=== PATIENT | male | born 1940 | race Caucasian/White ===

== ENCOUNTER → 2016-09-24 | Outpatient (CLI) | payer MEDICARE ==
[~2016-09-24] MED LIST: ACULAR 3ML 3 ML5 ML; ASPI-COR81 M1 PO; ASPIR-TRIN325 MG PO; B12,B-12,B 12500 MC1 PO; BACTRIM DS 8001 TA1 PO; CARDIZEM120 MG PO; CELEXA40 MG PO; CIPRO500 MG PO; COUMADIN5 M1 PO; FLOMAX0.4 MG PO; GLIPIZIDE10 MG PO; HYDR25T PO; LANTUS100 U/ML SC; LOPRESSOR25 MG PO; METFORMIN1000 MG PO; METOPROLOL SUCC25 M2 PO; METOPROLOL SUCC50 M2 PO; METOPROLOL SUCC50 MG PO; OCUFLOX 0.3% 5 M5 ML; PRED FORTE 1 ML1 ML; SIMVASTATIN40 MG PO; VICODIN ES 7501 TAB PO; XARE20MG PO; ZOVIRAX800 MG PO
[2016-09-24 13:45] LABS: C-REACTIVE PROTEIN 1.81 MG/DL (0-0.3); POTASSIUM 5.2 mmol/L (3.5-5.1)
[2016-09-24 13:47] LABS: HEMOGLOBIN A1c 8.1 % (4.8-5.6)
== END | disposition home or self-care (01) ==
LOC: MRI 01:34 → LAB 01:34 → MRI 13:00
PROVIDERS: Internal Medicine
DX: E11.621 Type 2 diabetes mellitus with foot ulcer (principal); L97.519 Non-pressure chronic ulcer of other part of right foot with unspecified severity

== ENCOUNTER → 2016-10-11 | Outpatient (CLI) | payer MEDICARE, BC ==
--- NOTE | ~2016-10-11 | PR ---
[place], [place] PROGRESS NOTE NAME: JAMIA JAMIL LOCATED WITHIN [facility] #: [id number] UNIT #: [id number] ROOM: DOCTOR: CED VelaNOVA BIRTHDATE: [birth year] DOS: 10/11/2016 CHIEF COMPLAINT: Follow up right great toe ulcer. HISTORY OF PRESENT ILLNESS: The location of the wound is the right great toe, medial plantar aspect. The chronicity is over a year and half nonhealing. He has been here since April without any significant improvement. He has diabetes, which is improving, but initially had been uncontrolled, difficulty offloading; however, now has been wearing a postop shoe, which seems to be keeping the callus at bay. He does not want to use a contact cast at this time. 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 X-ray is negative. Sed rate elevated. He has been seen by Infectious Disease and was given one time injection of Dalvance, he is due for the second dose today. He has a followup appointment with Infectious Disease next week. He has no fevers or chills. No advancing erythema. He says his sugars are the same as always not uncontrolled. He has no pain, it does continue to drain, but seems to somewhat decrease after he elevates his leg. OBJECTIVE: Vitals are stable. Temperature is 98.1, pulse of 76, respirations 18, blood pressure is 126/80. The wound is measuring 1.7 x 1.5 x 0.1, it is definitely bigger. There is continued erythema and edema of the toe. It does not appear to be advancing as far as affecting the foot at this point, but it still is quite apparent. There is some fibrin and slough present in the base of the wound. There is no purulence or tenderness or odor present. Debridement was done today, the tissue removed was fibrin, slough and subcutaneous tissue. There was a moderate amount of bleeding that was controlled with pressure. Callus was also removed with a #15 blade. Post-debridement measurements are as follows: 2.1 x 2.6 x 0.1. The patient tolerated the debridement well. Instrument utilized was a #15 blade and a curet. ASSESSMENT AND PLAN: Worsening diabetic foot ulcer with probable chronic osteomyelitis and evidence of cellulitis. He is on Dalvance. Hopefully, we will see an improvement after he gets a second dose. He has a followup appointment with Infectious Disease. We are awaiting approval for hyperbaric oxygen. However, despite even if we do not get approval from insurance, he may not agree to it. I did also recommend to get a TCOM as this may show whether he would be actually benefitting from HBO or not. He is agreeable to getting this test done. We will try to get this ordered next week as soon as possible. In the meantime, I did tell him that he is at risk for amputation of the toe and also I did advise him to watch for advancing erythema or any type of systemic symptoms. A marker was used today to jaime the area of erythema so he has an idea of whether it is worsening or not. We have not used Dakin's on him and I think I would like to try this as well to see if this will help with any of the localized process of infection and this has been ordered and called into his pharmacy and we will use this. In the meantime, I will have him use the Aquacel Ag instead of Maxorb. Followup is in 1 week. I want the patient to change his dressing everyday. [place], [place] PROGRESS NOTE NAME: [facility]IA JAMIL [facility] [id number] UNIT #: [id number] ROOM: DOCTOR: NOVA COUGHLIN M.D. BIRTHDATE: [birth year] NOVA COUGHLIN MD CM:PNTRANS [id number] NOVA COUGHLIN M.D. 10/24/16 0628 interface
== END ==
LOC: WOUNDCARE 02:20
DX: E11.621 Type 2 diabetes mellitus with foot ulcer (principal); L97.511 Non-pressure chronic ulcer of other part of right foot limited to breakdown of skin; E11.69 Type 2 diabetes mellitus with other specified complication; M86.3 Chronic multifocal osteomyelitis; L84 Corns and callosities

== ENCOUNTER → 2016-11-26 | Outpatient (CLI) | payer MEDICARE, BC ==
--- NOTE | ~2016-11-26 | PR ---
[place], [place] PROGRESS NOTE NAME: JAMIA JAMIL UNIT #: [id number] ROOM: DOCTOR: FOZIA RICE DO BIRTHDATE: [birth year] DOS: 11/26/2016 The patient is supervised in the hyperbaric chamber for 11th hyperbaric treatment out of 30 for diabetic ulcers of the lower extremity. Pre-therapy, blood pressure 140/60, pulse 60, respirations 16, temperature 97.9, blood sugar 196. Post-therapy, blood pressure 130/60, pulse 60, respirations 16, temperature 97.8, blood sugar 134. Pre-therapy, tympanic membranes were negative. Grade 0 TEED score. The patient was supervised in the chamber 120 minutes total with a depth of ____ pressure for 90 minutes with no air breaks. He tolerated the procedure without difficulty and will return for next treatment. FOZIA RICE DO CM:PNTRANS [id number] FOZIA RICE DO 11/27/16 0219 interface
== END ==
LOC: WOUNDCARE 03:15
DX: E11.621 Type 2 diabetes mellitus with foot ulcer (principal); L97.511 Non-pressure chronic ulcer of other part of right foot limited to breakdown of skin; E11.69 Type 2 diabetes mellitus with other specified complication; M86.371 Chronic multifocal osteomyelitis, right ankle and foot

== ENCOUNTER → 2016-11-27 | Outpatient (CLI) | payer MEDICARE, BC ==
--- NOTE | ~2016-11-27 | PR ---
[place], [place] PROGRESS NOTE NAME: JAMIA JAMIL [facility] #: [id number] UNIT #: [id number] ROOM: DOCTOR: CED Vela,NOVA BIRTHDATE: [birth year] DOS: 11/27/2016 HBO THERAPY NOTE This is treatment #12. The protocol is 2.0 FERN with 90 minutes of oxygen and no air breaks. The indication is the diabetic foot ulcer, Ryder stage 3. Compression began at 1148. Treatment pressure was reached at 1203. Treatment length was 120 minutes. Decompression began at 1333 and ended at 1348. Vitals pre-HBO shows a blood pressure of 164/74, pulse of 68, respirations 16, temperature 98.1, glucose is 190. Post-HBO, the blood pressure is 158/66, pulse of 60, respirations 16, temperature 98, glucose 112. TEED scale is grade 0 bilaterally pre and post-HBO treatment. The patient tolerated the treatment well without any adverse events. I certify that I supervised this HBO treatment in accordance with Medicare guidelines. A trained emergency response team is readily available per hospital policies and procedures. Continue HBO therapy as ordered. NOVA COUGHLIN MD CM:PNTRANS NOVA COUGHLIN M.D. 11/28/16 0924 interface
--- NOTE | ~2016-11-27 | PR ---
[place], [place] PROGRESS NOTE NAME: JAMIA JAMIL [facility] #: [id number] UNIT #: [id number] ROOM: DOCTOR: CED VelaNOVA BIRTHDATE: [birth year] DOS: 11/27/2016 CHIEF COMPLAINT: The patient comes in for a followup of his diabetic foot ulcer. HISTORY OF PRESENT ILLNESS: The location is the right great toe, medial plantar aspect. There is associated osteomyelitis. He is in HBO therapy, which seems to have really helped as far as the redness and swelling of the toe goes; however, the wound has made little progress in healing. He continues to have a fair amount of drainage. No fevers or chills and he has not been followed up by ID yet for a followup visit, so this was requested last week. PHYSICAL EXAMINATION: VITAL SIGNS: Stable. Blood pressure is 164/74, pulse is 68, respirations 16, temp 98.1. WOUND EXAMINATION: The wound is measuring the same 2 x 2 x 0.1. There is some fibrin slough, minimal callus present, but is still present. There is erythema and edema, but overall it does seem improved in general. There is some fibrin slough present in the base of the wound as well. Debridement was done. Tissue removed was callus, fibrin and slough with a moderate amount of bleeding that was controlled with pressure. The patient tolerated the procedure well. A #15 blade was utilized. Post-debridement measurements are unchanged. ASSESSMENT AND PLAN: Chronic diabetic foot ulcer with no significant improvement as far as wound margins. However, the hyperbaric seems to be improving the erythema and edema of the toe in general, so this aspect does seem to have improved. He is awaiting further recommendations from Infectious Disease. He does have an offloading shoe; however, I think he would benefit from another repeat orthotic consult with the ultrasound spec for possible other sort of offloading device if possible. He is not a contact cast candidate as he drives and he will be unable to drive with a contact cast. A repeat swab culture was taken today post-debridement. All his previous cultures have essentially been unremarkable. We will continue with the collagen dressing and have him follow up with Infectious Disease and ultrasound spec as well. Repeat arterial Dopplers will be ordered as it has been a long time since he has had them done and repeat ARI today was noncompressible on the right lower extremity. So, we will repeat the arterial Dopplers and follow up in 1 week. Hopefully, he will be a candidate for a potential biologic graft. So, we will see how he does next week and then try to get him on Dr. Gotti schedule the following week after. [place], [place] PROGRESS NOTE NAME: JAMIA JAMIL UNIT #: [id number] ROOM: DOCTOR: NOVA COUGHLIN M.D. BIRTHDATE: [birth year] NOVA COUGHLIN MD CM:FAYE [phone] NOVA COUGHLIN M.D. 11/27/161948 interface
== END ==
LOC: WOUNDCARE 03:10
DX: E11.621 Type 2 diabetes mellitus with foot ulcer (principal); L97.511 Non-pressure chronic ulcer of other part of right foot limited to breakdown of skin; E11.69 Type 2 diabetes mellitus with other specified complication; M86.8X7 Other osteomyelitis, ankle and foot; L84 Corns and callosities

== ENCOUNTER → 2016-11-28 | Outpatient (CLI) | payer MEDICARE, BC ==
--- NOTE | ~2016-11-28 | PR ---
[place], [place] PROGRESS NOTE NAME: JAMIA JAMIL [facility] #: [id number] UNIT #: [id number] ROOM: DOCTOR: CED Vela,NOVA BIRTHDATE: [birth year] DOS: 11/28/2016 This is treatment #13, protocol is 2.0 FERN with 90 minutes of oxygen and no air breaks. Compression began at 11:17. Treatment pressure was reached at 11:33. Decompression began at 13:03 and ended at 13:19. Treatment length of 122 minutes. Vitals pre-HBO shows a blood pressure of 138/60, pulse of 60, respirations 15, temperature 97.8, glucose is 227. Post-HBO, the blood pressure is 152/70, pulse of 60, respirations 16, temperature 97.9, glucose is 150. TEED scale is grade 0 bilaterally pre and post-HBO treatment. The patient tolerated the treatment well without adverse events. I certify that I supervised this HBO treatment in accordance with Medicare guidelines. A current trained emergency response team is readily available per hospital policies and procedures. Continue HBO therapy as ordered. NOVA COUGHLIN MD CM:PNTRANS [id number] NOVA COUGHLIN M.D. 11/29/16 0221 interface
== END ==
LOC: WOUNDCARE 02:24
DX: E11.621 Type 2 diabetes mellitus with foot ulcer (principal); L97.511 Non-pressure chronic ulcer of other part of right foot limited to breakdown of skin; E11.69 Type 2 diabetes mellitus with other specified complication; M86.371 Chronic multifocal osteomyelitis, right ankle and foot

== ENCOUNTER → 2016-12-09 | Outpatient (CLI) | payer MEDICARE, BC ==
--- NOTE | ~2016-12-09 | PR ---
[place], [place] PROGRESS NOTE NAME: JAMIA JAMIL [facility] #: [id number] UNIT #: [id number] ROOM: DOCTOR: CED Vela,NOVA BIRTHDATE: [birth year] DOS: 12/09/2016 HBO THERAPY NOTE This is treatment #14. The protocol is 2.0 FERN with 90 minutes of oxygen and no air breaks. INDICATION: Diabetic ulcer of the lower extremity. Compression began at 8:14. Treatment pressure was reached at 8:30. Treatment length was 122 minutes. Decompression began at 10 and ended at 10:16. Blood pressure prior to HBO was 130/64, pulse of 60, respirations 20, temperature is 98. Glucose is 240. Post-HBO the blood pressure is 150/66, pulse of 60, respirations 16, temperature 97.9. Glucose is 203. TEED scale is grade 0 bilaterally pre and post-HBO treatment. The patient tolerated the treatment well without adverse events. I certify that I supervised this HBO treatment in accordance with Medicare guidelines. A trained emergency response team is readily available per hospital policies and procedures. Continue HBO therapy as ordered. NOVA COUGHLIN MD CM:PNTRANS [phone] NOVA COUGHLIN M.D. 12/10/16 0801 interface
== END ==
LOC: WOUNDCARE 10:06
DX: E11.621 Type 2 diabetes mellitus with foot ulcer (principal); L97.511 Non-pressure chronic ulcer of other part of right foot limited to breakdown of skin; E11.69 Type 2 diabetes mellitus with other specified complication; M86.371 Chronic multifocal osteomyelitis, right ankle and foot

== ENCOUNTER → 2016-12-10 | Outpatient (CLI) | payer MEDICARE, BC ==
--- NOTE | ~2016-12-10 | PR ---
[place], [place] PROGRESS NOTE [id number] #: [id number] ROOM: DOCTOR: FOZIA RICE DO BIRTHDATE: [birth year] DOS: 12/10/2016 HYPERBARIC NOTE SUBJECTIVE: The patient was supervised in hyperbaric chamber for 15th hyperbaric treatment for diabetic ulcers of lower extremity. Pre-therapy, blood pressure 140/56, pulse 60, respirations 16, temperature 98, and glucose 202. Post-therapy, blood pressure 160/72, pulse 60, respirations 16, temperature 97.9, and blood sugar 134. The patient was supervised in the chamber for 122 minutes total with 90 minutes at depth at 2 atmospheres of pressure, no air breaks. He tolerated the procedure without difficulty and will return for next treatment. His tympanic membranes were clear with grade 0 TEED score bilaterally. FOZIA RICE DO CM:PNTRANS [phone] FOZIA RICE DO 12/11/16 0612 interface
== END ==
LOC: WOUNDCARE 12:36
DX: E11.621 Type 2 diabetes mellitus with foot ulcer (principal); L97.511 Non-pressure chronic ulcer of other part of right foot limited to breakdown of skin; E11.69 Type 2 diabetes mellitus with other specified complication; M86.371 Chronic multifocal osteomyelitis, right ankle and foot

== ENCOUNTER → 2016-12-11 | Outpatient (CLI) | payer MEDICARE, BC ==
--- NOTE | ~2016-12-11 | PR ---
[place], [place] PROGRESS NOTE NAME: JAMIA JAMIL [facility] #: [id number] UNIT #: [id number] ROOM: DOCTOR: CED Vela,NOVA BIRTHDATE: [birth year] DOS: 12/11/2016 HBO THERAPY NOTE This is treatment #16. Protocol is 2.0 FERN with 90 minutes of oxygen and no air breaks. INDICATION: Diabetic foot ulcer. The compression began at 8:05 and treatment pressure was reached at 8:28. Treatment length was 120 minutes. Decompression began at 9:15, ended at 10:05. Blood pressure prior to HBO was 128/60, pulse of 62, respirations 16, temp is 98, glucose is 229. Post-HBO, the blood pressure is 156/66, a pulse of 64, respirations 16, temperature is 97.9, glucose is 186. TEED scale is grade 0 bilaterally pre and post-HBO treatment. I certify that I supervised this HBO treatment in accordance with Medicare guidelines. A trained emergency response team is readily available per hospital policies and procedures. Continue HBO therapy as ordered. NOVA COUGHLIN MD CM:PNTRANS [phone] NOVA COUGHLIN M.D. 12/12/16 0639 interface
--- NOTE | ~2016-12-11 | PR ---
[place], [place] PROGRESS NOTE NAME: JAMIA JAMIL [facility] #: [id number] UNIT #: [id number] ROOM: DOCTOR: CED VelaNOVA BIRTHDATE: [birth year] DOS: 12/11/2016 CHIEF COMPLAINT: Followup of diabetic foot ulcer. HISTORY OF PRESENT ILLNESS: The location of the wound is the right great toe medial plantar aspect, there is associated osteomyelitis. He has had approximately 15 treatments of HBO therapy, which has helped as far as the redness and swelling of the toe. However, the wound has made little progress in granulation, it has not gotten much smaller. In the meantime, he has no fevers or chills. He continues to have a fair amount of drainage. He is on a collagen dressing. He has a followup appointment with Dr. Casarez this week on for any further recommendations per ID. He has been busy and has had missed a few treatments in his wound clinic appointment last week due to his being ill and now he has had more responsibility trended care for her as well at home. He wishes to not do HBO therapy anymore either. PHYSICAL EXAMINATION: VITAL SIGNS: As follows: He is afebrile, pulse is 60, respirations 16, blood pressure is 130/60. EXTREMITIES: The wound is measuring 1.5 x 1.9 x 0.1. There is minimal fibrin and slough present in the base of the wound. There is some callus still present, mostly at the bottom end of it. Overall, the redness seems stable and not worse, slightly improved overall from a few weeks ago; however, is still somewhat present. It is not tender. It is not acutely warm. A selective debridement was done to remove fibrin, slough, and callus formation. This was accomplished with a #15 blade. Post-debridement measurements are 1.5 x 1.9 x 0.1. There was a moderate amount of bleeding that was controlled with pressure. The patient tolerated the debridement well. ASSESSMENT AND PLAN: Chronic nonhealing diabetic foot ulcer with little progress. He wishes to stop HBO therapy. He is going to follow up with manny this week as well and I did suggest for him to see Dr. Gotti next week to see if he would be a candidate for possible skin substitute, so he would like to discuss with her what this entails. Follow up in [address] Gotti. [place], [place] PROGRESS NOTE NAME: JAMIA JAMIL UNIT #: [id number] ROOM: DOCTOR: NOVA COUGHLIN M.D. BIRTHDATE: [birth year] NOVA COUGHLIN MD CM:FAYE [phone] NOVA COUGHLIN M.D. 12/12/16108 interface
== END ==
LOC: WOUNDCARE 01:29
DX: E11.621 Type 2 diabetes mellitus with foot ulcer (principal); L97.511 Non-pressure chronic ulcer of other part of right foot limited to breakdown of skin; E11.69 Type 2 diabetes mellitus with other specified complication; M86.371 Chronic multifocal osteomyelitis, right ankle and foot; I48.91 Unspecified atrial fibrillation

== ENCOUNTER → 2016-12-17 | Outpatient (CLI) | payer MEDICARE, BC ==
--- NOTE | ~2016-12-17 | PR ---
[place], [place] PROGRESS NOTE NAME: JAMIA JAMIL [facility] #: [id number] UNIT #: [id number] ROOM: DOCTOR: ANUJ DSOUZA DPM BIRTHDATE: [birth year] DOS: 12/17/2016 SUBJECTIVE: This is an established patient seen for grade 3 diabetic ulceration of right great toe. He was seen today by me for consultation and surgical options. Right great toe ulcer measuring 1.5 cm x 2.2 cm x 0.1 cm. There is about 20% slough at base of the wound and the rest is granular. There is only mild erythema. No edema, no drainage, no foul odor present. The patient has a longstanding history of this open ulceration without any true resolution of his symptoms. He did have 15 HBO treatments and has had multiple different wound care dressings. He is offloading in a surgical shoe, but he still does work and he is the only one who drives in his household at this time. PHYSICAL EXAMINATION: Upon physical exam, I noticed that the wound is relatively clean and again free of any gross bacterial contamination. IMPRESSION AND PLAN: Options were discussed with the patient, which include a use of an acellular dermal matrix partial skin graft to the area. This would necessitate the patient to be off of the limb. I would put a bulky dressing with a posterior splint and patient would be unable to drive for a series of weeks until that graft takes. The patient is aware of the surgical indications and the postoperative care that would be involved if he proceeded with this course of treatment. The other option that was relayed to the patient would be amputation of the toe. With the amputation, we would take care of the chronic osteomyelitis and the open wound. The patient will take both of these things under consideration. He was urged to call the Wound Care Center if he has additional questions for me. In the meantime, we will continue with dry dressings of Puracol and change every other day. The patient will be seen by Dr. Pederson next week for followup. If he chooses to proceed with either surgical option, they will put him back on my schedule and we will schedule it at his earliest convenience. ANUJ DSOUZA DPM CM:PNTRANS [id number] ANUJ DSOUZA DPPepe 12/17/16 2245 interface
== END ==
LOC: WOUNDCARE 04:01
DX: E11.621 Type 2 diabetes mellitus with foot ulcer (principal); L97.511 Non-pressure chronic ulcer of other part of right foot limited to breakdown of skin; E11.69 Type 2 diabetes mellitus with other specified complication; M86.371 Chronic multifocal osteomyelitis, right ankle and foot

== ENCOUNTER → 2016-12-23 | Outpatient (CLI) | payer MEDICARE, BC ==
--- NOTE | ~2016-12-23 | PR ---
[place], [place] PROGRESS NOTE NAME: JAMIA JAMIL [facility] #: [id number] UNIT #: [id number] ROOM: DOCTOR: CED VelaNOVA BIRTHDATE: [birth year] DOS: 12/23/2016 SUBJECTIVE: The patient comes in for chief complaint of a diabetic foot ulcer of the right great toe. HISTORY OF PRESENT ILLNESS: The location is the right great toe medial plantar aspect. There is associated chronic osteomyelitis and he has undergone 15 treatments of HBO therapy, several courses of oral antibiotics. He was recently evaluated by Infectious Disease who felt no further antibiotics were needed. The wound has made very little progress and healing and continues to be open. He continues to have a fair amount of drainage. At times, it is bloody. There is no tenderness associated. He is using a postop shoe for offloading. He was seen by Dr. Gotti last week for possible surgical interventions which include either OR placement of a graft versus amputation of the toe. The patient is reluctant to go to the OR for any kind of graft at this time and is thinking about possibly going to another wound clinic where those grafts are available in the outpatient wound clinic. We still do not have approval in our center for any outpatient grafts at this point. OBJECTIVE: VITAL SIGNS: Stable. Temperature is 97.8, pulse is 60, respirations 18, blood pressure is 130/70. The wound looks about the same in general as 1.4 x 2.2 x 0.1. There is minimal fibrin, slough and there is a very minimal amount of callus around the periwound. The overall redness and swelling are definitely improved in general. A selective debridement was done. The tissue removed was callus, hyperkeratotic tissue, nonviable fibrin and slough. There was a moderate amount of bleeding that was controlled with pressure. Post-debridement measurements are as follows 1.4 x 2 x 0.1. There was a moderate amount of bleeding that was controlled with pressure. The patient tolerated the debridement well. ASSESSMENT AND PLAN: Chronic nonhealing foot ulcer of the right great toe. He is thinking about possibly going to another wound clinic where grafts are available. In the meantime, we will continue with the collagen dressing, and we will put him on our schedule for next week unless he decides to go to another wound clinic. We are trying to get approval for possible EpiFix graft, but this still has not gone through in that I am aware of. [place], [place] PROGRESS NOTE NAME: JAMIA JAMIL Daniel UNIT #: [id number] ROOM: DOCTOR: NOVA COUGHLIN M.D. BIRTHDATE: [birth year] NOVA COUGHLIN MD CM:PNDAREN [phone] NOVA COUGHLIN M.D. 12/24/16257 interface
== END ==
LOC: WOUNDCARE 02:11
DX: E11.621 Type 2 diabetes mellitus with foot ulcer (principal); L97.511 Non-pressure chronic ulcer of other part of right foot limited to breakdown of skin; E11.69 Type 2 diabetes mellitus with other specified complication; M86.371 Chronic multifocal osteomyelitis, right ankle and foot; L84 Corns and callosities

== ENCOUNTER → 2017-01-01 | Outpatient (CLI) | payer MEDICARE, BC ==
--- NOTE | ~2017-01-01 | PN ---
[place], [place] PROGRESS NOTE NAME: JAMIA JAMIL [facility] #: [id number] UNIT #: [id number] ROOM: DOCTOR: CED VelaNOVA BIRTHDATE: [birth year] DATE: 01/01/17 WOUND CARE PROGRESS NOTE CHIEF COMPLAINT: Diabetic foot ulcer. HISTORY OF PRESENT ILLNESS: The location of the wound is the right great toe medial plantar aspect, it is diabetic in nature. It has not made any progress, it has been open for almost greater than a year and a half, possibly 2. He has no specific complaints, is still continues to have a fair amount of drainage. He was seen by Infectious Disease. He has had approximately 15 treatments of HBO. He is on a collagen dressing. He is offloaded with a postop shoe. He has had arterial studies, but continues to have a nonhealing wound. OBJECTIVE: VITAL SIGNS: Stable. Blood pressure is 130/68, pulse is 78, respirations 18, temperature is 97.8. EXTREMITIES: The wound is measuring a little bit bigger at 1.8 x 2 x 0.1. It looks fairly clean. There is minimal chronic erythema. No sign of an acute infection, minimal fibrin slough is present and there is very minimal callus. Overall, the base of the wound looks fairly clean. A debridement was done to remove fibrin slough, hyperkeratotic tissue. This was accomplished with a #15 blade. There was some [id number] amount of bleeding. Post-debridement measurements are unchanged. 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 He is going to seek an opinion from the medical center again. He wanted to see Dr. Hogan in the past and has another appointment with him next week, but he wants to see what Dr. Hogan says and regarding possible further options. He will call us if he wishes to return to our clinic. In my opinion, I think that the next step is to try a biologic agent. We have approval EpiFix for him and I think that he would be a good candidate for this, but he would like to seek a recommendation first from Dr. Hogan before making any further decisions. He does not wish to go to the OR and have graft placement placed there. I had referred him to Dr. Gotti for this, but he is not interested in that option. [place], [place] PROGRESS NOTE NAME: JAMIA JAMIL UNIT #: [id number] ROOM: DOCTOR: NOVA COUGHLIN M.D. BIRTHDATE: [birth year] NOVA COUGHLIN M.D. CM:PNDAREN [id number] NOVA COUGHLIN M.D. 01/06/17 1412 TERESA BOATENG.R
--- NOTE | ~2017-01-01 | PN ---
[place], [place] PROGRESS NOTE NAME: JAMIA JAMIL [facility] #: [id number] UNIT #: [id number] ROOM: DOCTOR: CED VelaNOVA BIRTHDATE: [birth year] DATE: 01/01/17 WOUND CARE PROGRESS NOTE CHIEF COMPLAINT: Diabetic foot ulcer. HISTORY OF PRESENT ILLNESS: The location of the wound is the right great toe medial plantar aspect, it is diabetic in nature. It has not made any progress, it has been open for almost greater than a year and a half, possibly 2. He has no specific complaints, is still continues to have a fair amount of drainage. He was seen by Infectious Disease. He has had approximately 15 treatments of HBO. He is on a collagen dressing. He is offloaded with a postop shoe. He has had arterial studies, but continues to have a nonhealing wound. OBJECTIVE: VITAL SIGNS: Stable. Blood pressure is 130/68, pulse is 78, respirations 18, temperature is 97.8. EXTREMITIES: The wound is measuring a little bit bigger at 1.8 x 2 x 0.1. It looks fairly clean. There is minimal chronic erythema. No sign of an acute infection, minimal fibrin slough is present and there is very minimal callus. Overall, the base of the wound looks fairly clean. A debridement was done to remove fibrin slough, hyperkeratotic tissue. This was accomplished with a #15 blade. There was some ropyhwn-vj-rnwhuync amount of bleeding. Post-debridement measurements are unchanged. 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 He is going to seek an opinion from the medical center again. He wanted to see Dr. Hogan in the past and has another appointment with him next week, but he wants to see what Dr. Hogan says and regarding possible further options. He will call us if he wishes to return to our clinic. In my opinion, I think that the next step is to try a biologic agent. We have approval EpiFix for him and I think that he would be a good candidate for this, but he would like to seek a recommendation first from Dr. Hogan before making any further decisions. He does not wish to go to the OR and have graft placement placed there. I had referred him to Dr. Gotti for this, but he is not interested in that option. NOVA COUGHLIN M.D. CM:FAYE [phone] NOVA COUGHLIN M.D. 01/06/17 144 TERESA BOATENG.[place]
--- NOTE | ~2017-01-01 | PN ---
[place], [place] PROGRESS NOTE NAME: JAMIA JAMIL [facility] #: [id number] UNIT #: [id number] ROOM: DOCTOR: CED VelaNOVA BIRTHDATE: [birth year] DATE: 01/01/17 WOUND CARE PROGRESS NOTE CHIEF COMPLAINT: Diabetic foot ulcer. HISTORY OF PRESENT ILLNESS: The location of the wound is the right great toe medial plantar aspect, it is diabetic in nature. It has not made any progress, it has been open for almost greater than a year and a half, possibly 2. He has no specific complaints, is still continues to have a fair amount of drainage. He was seen by Infectious Disease. He has had approximately 15 treatments of HBO. He is on a collagen dressing. He is offloaded with a postop shoe. He has had arterial studies, but continues to have a nonhealing wound. OBJECTIVE: VITAL SIGNS: Stable. Blood pressure is 130/68, pulse is 78, respirations 18, temperature is 97.8. EXTREMITIES: The wound is measuring a little bit bigger at 1.8 x 2 x 0.1. It looks fairly clean. There is minimal chronic erythema. No sign of an acute infection, minimal fibrin slough is present and there is very minimal callus. Overall, the base of the wound looks fairly clean. A debridement was done to remove fibrin slough, hyperkeratotic tissue. This was accomplished with a #15 blade. There was some samxdci-bn-telrofoj amount of bleeding. Post-debridement measurements are unchanged. 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 He is going to seek an opinion from the medical center again. He wanted to see Dr. Hogan in the past and has another appointment with him next week, but he wants to see what Dr. Hogan says and regarding possible further options. He will call us if he wishes to return to our clinic. In my opinion, I think that the next step is to try a biologic agent. We have approval EpiFix for him and I think that he would be a good candidate for this, but he would like to seek an recommendation first from Dr. Hogan before making any further decisions. He does not wish to go to the OR and have graft placement placed there. I had referred him to Dr. Gotti for this, but he is not interested in that option. [place], [place] PROGRESS NOTE NAME: JAMIA JAMIL UNIT #: [id number] ROOM: DOCTOR: NOVA COUGHLIN M.D. BIRTHDATE: [birth year] NOVA COUGHLIN M.D. CM:FAYE [phone] NOVA COUGHLIN M.D. 01/02/17 172 TERESA BOATENG.NAYAR
== END ==
LOC: WOUNDCARE 02:21
DX: E11.621 Type 2 diabetes mellitus with foot ulcer (principal); L97.511 Non-pressure chronic ulcer of other part of right foot limited to breakdown of skin; L84 Corns and callosities

== ENCOUNTER → 2017-01-16 | Outpatient (CLI) | payer MEDICARE, BC ==
--- NOTE | ~2017-01-16 | PR ---
[place], [place] PROGRESS NOTE NAME: JAMIA JAMIL [facility] #: [id number] UNIT #: [id number] ROOM: DOCTOR: CED VelaNOVA BIRTHDATE: [birth year] DOS: 01/16/2017 CHIEF COMPLAINT: Diabetic foot ulcer. HISTORY OF PRESENT ILLNESS: Wound is located on the right great toe plantar aspect, it is diabetic in nature, which has made very little progress. He has been here for almost a year and a half, but the wound has been open even longer than that, probably almost 2 years. He continues to have a fair to moderate amount of drainage, at times it is bloody. He was seen by Infectious Disease who had felt that no further antibiotics were needed. He has had multiple second opinions with Podiatry as well as different Wound Clinic evaluation at the [facility]. He has been on the collagen dressing. He has even had 15 treatments of HBO and none of these treatments have made any progress at all. He was seen by Dr. Hogan at the [facility] for an opinion regarding grafts. The patient was approved for EpiFix graft application, so the patient comes in today for a followup wound visit and graft placement. He has no other specific complaints. OBJECTIVE: VITAL SIGNS: Stable. Blood pressure is 120/64, pulse of 76, respirations 18, temperature is 97.8. EXTREMITIES: The wound is measuring 1.8 x 1.5 x 0.1. There is a moderate amount of callus with undermining on the plantar aspect of 0.4. There is chronic erythema and edema. There is minimal fibrin slough present in the base of the wound. The area was debrided with a 15 blade, the undermined area was removed with forceps and scissors. Fibrin, slough and subcutaneous tissue were removed. The undermined area was removed with forceps and scissors as well. The post-debridement measurements are 3 x 2 x 0.2 in depth. After the area was prepped and cleansed properly, the EpiFix graft was placed on to the wound, it fit quite well. It was hydrated with normal saline and Versatel was placed over it, as well as Steri-Strips to keep it in place. ASSESSMENT AND PLAN: Nonhealing diabetic foot ulcer. He has had treatment with antibiotics, hyperbarics. He has a postop shoe for offloading. He has had wound care with multiple debridements, collagen dressings without any change in the status of his wound. We have gotten approval for EpiFix graft and are using it. Today was the first time to replace the first graft. Also, I am considering possibly wound VAC on top of this to help control some of the drainage and to help alleviate some of the pressure from his diabetic foot ulcer. However, it may be a difficult area to obtain a seal, so we will think about this at the following wound care visit. Follow up in 1 week. We do not want him to change the graft, the dressing that was applied today, we also used some Maxorb over it and a bulky dressing and want him to try to keep that in place for at least 3 days. He is to change the outer dressing only and if there are any problems, to call us. [place], [place] PROGRESS NOTE NAME: JAMIA JAMIL UNIT #: [id number] ROOM: DOCTOR: NOVA COUGHLIN M.D. BIRTHDATE: [birth year] NOVA COUGHLIN MD CM:FAYE [phone] NOVA COUGHLIN M.D. 01/17/178 interface
== END ==
LOC: WOUNDCARE 02:44
DX: E11.621 Type 2 diabetes mellitus with foot ulcer (principal); L97.512 Non-pressure chronic ulcer of other part of right foot with fat layer exposed

== ENCOUNTER → 2017-01-20 | Outpatient (CLI) | payer MEDICARE, BC ==
--- NOTE | ~2017-01-20 | PR ---
[place], [place] PROGRESS NOTE NAME: JAMIA JAMIL [facility] #: [id number] UNIT #: [id number] ROOM: DOCTOR: CED VelaNOVA BIRTHDATE: [birth year] DOS: 01/20/2017 WOUND CARE PROGRESS NOTE CHIEF COMPLAINT: Diabetic foot ulcer. The location of the wound is the right great toe medial plantar aspect, it is diabetic in nature. It has made no progress since he has been here. This is a chronic wound that has been present for 39 weeks at least while he has been here in the wound clinic but prior to him coming here was present for over 8 months as well. He has had wound care on a weekly basis with debridement. He has been offloaded with a postop shoe. He has had a trial of hyperbaric, only 15 treatments. He has had collagen dressings, alginate dressings. He has had recurrent consultation with Infectious Disease. MRI was suspicious, but not definitive for osteomyelitis. Clinically, it was felt that the patient had osteomyelitis still present. Wound cultures were really unremarkable. He has been seen by another wound center on 2 occasions as well as consultation with Dr. Gotti who had recommended possible placement of a graft placement in the OR. The patient declined this recommendation. He was seen most recently by the Medical Center as well for their opinion and our plan was to go ahead and place an EpiFix graft on the patient as he was essentially nonhealing and stagnant without any acute signs of infection. It was felt that, that was our next step; however, the graft was placed last week on . The patient complains of a large amount of drainage over the weekend to the point where it was coming through the bulky dressing. We had used the Versatel and skin prep around the periwound, but it remains quite macerated. He has no fevers or chills. No change in pain. He does not have pain at all. He has no change in redness. He is quite frustrated with the progress of his wound. OBJECTIVE: VITAL SIGNS: He is afebrile, pulse of 78, respirations 18, blood pressure is 130/90. WOUND EXAMINATION: The wound is measuring 1.5 x 2.2 x 0.1. There is a large amount of maceration noted. There is minimal fibrin slough. It is difficult to even see if the graft has incorporated at all, it does not appear to be in my opinion. Also, there is a large amount of maceration present. The area was cleansed with a sterile Q-tip. There was a small area of bleeding noted. This was swabbed and sent for culture. No debridement was done today. 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 We will go ahead and hold off on any grafting for now. I would like to get the drainage under better control. Other possibilities are still underlying infection in the bone that may be prohibiting the healing process. We will go ahead and reorder all the testing including an x-ray and the triple phase bone scan. He has had MRIs before, which were somewhat inconclusive, I would like to go ahead and get a baseline blood work, ESR, CRP, etc., hemoglobin A1c and repeat his arterial Dopplers. I looked at the Dopplers, they were adequate back in April 2016 but he has not had them repeated since so we will go ahead and do that as well. He is agreeable to the testing. I did explain that it might be time to consider further consultation with Podiatry and possible amputation may be required at some point if we continue to have problem [place], [place] PROGRESS NOTE NAME: JAMIA JAMIL UNIT #: [id number] ROOM: DOCTOR: NOVA COUGHLIN M.D. BIRTHDATE: [birth year] with healing this wound. He is not wanting to hear about a possible amputation. I did highly recommend that he consider another second opinion from another wound care center as we have made very little progress in regard to this wound. Also, we will consider having the elevator attendant come and look at his footwear again to see if there is anything else that we can do to help offload the area even further. We are going to change the dressing to Iodosorb and a Mepitel transfer. Hopefully, this will help control some of the maceration, but we will not put a graft on until drainage is under control. Followup in wound care in 1 week unless he goes to another center. NOVA COUGHLIN MD CM:PNTRANS [phone] NOVA COUGHLIN M.D. 01/21/17 0954 interface
== END ==
LOC: WOUNDCARE 10:37
DX: E11.621 Type 2 diabetes mellitus with foot ulcer (principal); L97.512 Non-pressure chronic ulcer of other part of right foot with fat layer exposed

== ENCOUNTER → 2017-01-23 | Outpatient (CLI) | payer MEDICARE, BC | END | disposition home or self-care (01) | LOC: NM 01:53 | DX: L97.519 Non-pressure chronic ulcer of other part of right foot with unspecified severity (principal); Z96.642 Presence of left artificial hip joint; Z85.72 Personal history of non-Hodgkin lymphomas ==

== ENCOUNTER → 2017-01-27 | Outpatient (CLI) | payer MEDICARE, BC ==
--- NOTE | ~2017-01-27 | PR ---
[place], [place] PROGRESS NOTE NAME: JAMIA JAMIL [facility] #: [id number] UNIT #: [id number] ROOM: DOCTOR: CED VelaNOVA BIRTHDATE: [birth year] DOS: 01/27/2017 CHIEF COMPLAINT: Diabetic foot ulcer. HISTORY OF PRESENT ILLNESS: This is a 76-year-old male with a history of a diabetic ulcer that has been present for a year and a half without any healing. He has been coming to the wound clinic on a weekly basis and is without any specific improvement. We have treated him empirically with oral antibiotics for presumed osteomyelitis. He never did have bone exposed. He was seen by Infectious Disease the last time, who had initially recommended a trial of Dalvance that did not seem to improve anything. Per Infectious Disease recommendations at that time did not feel any further antibiotics were needed; however, the patient's wound remained stagnant and stalled. He did have a trial of hyperbarics, but he only completed approximately 15 hyperbaric treatments without any change other than decrease in some of the erythema around the wound, but the margins did not change. Repeat x-ray was negative and EpiFix graft was placed; however, it was noted that he had a large amounts of drainage and maceration and the margins were increased after the graft for placed, so the graft was discontinued, and it was felt that clinically, he probably still has an underlying osteomyelitis that was still ongoing. A bone scan was ordered. A repeat bone scan was done last week as well as a culture; however, it was a fair more of a superficial culture of the exudate from the actual drainage that he had and blood work. His bone scan was positive for osteomyelitis of the great toe. CRP was elevated at 1.75. It has been elevated in the past. Hemoglobin A1c was 8, glucose is 273, ESR is 80. Culture was light growth of Pseudomonas; however, that was not a deep tissue culture that was a superficial swab culture, and it was felt to change him from a Silver dressing to Iodosorb instead and see if that would help and also to use a more absorbent dressing. The patient reports no significant changes. No fevers or chills are noted. He is wearing his postop shoe for offloading. Doppler ultrasound was also ordered, but has not actually been done yet. The patient did say he obtained the Iodosorb, and he got the Mepitel Transfer, and he says he thinks it is not draining as much this week as it was last week. No pain. No fevers or chills are noted. OBJECTIVE: VITAL SIGNS: Stable. Temperature is 98.2, pulse of 74, respirations 18, blood pressure is 124/76. WOUND EXAM: The wound is measuring 1.5 x 2.2 x 0.1. There is minimal fibrin slough. It does not look nearly as inflamed or erythematous as last week. It is still erythematous, but slightly less than before. There is much less maceration. There is a small amount of nonviable hyperkeratotic callus around the periwound, but overall the erythema seems less and also he does have some undermining noted from 3-6 o'clock with a maximum of 0.3. The debridement was done today. The tissue or removed was fibrin slough, subcutaneous tissue, hyperkeratotic nonviable tissue as well. There was a moderate amount of bleeding. All the undermining was removed with forceps and scissors. Post-debridement measurements are as follows 1.5 x 2.2 x 0.1. There was a moderate amount of bleeding that was controlled with pressure. The patient tolerated the debridement well. The instruments used was a #15 blade, forceps and scissors. Cetacaine spray was used for topical anesthesia. A timeout was [place], [place] PROGRESS NOTE NAME: JAMIA JAMIL [facility] UNIT #: [id number] ROOM: DOCTOR: NOVA COUGHLIN M.D. BIRTHDATE: [birth year] conducted prior to the start of the procedure. ASSESSMENT AND PLAN: Diabetic foot ulcer, Ryder stage 3, nonhealing, likely secondary to chronic osteomyelitis that has still a problem. We do not have a bone culture. However, due to his antibiotic use in the past, I am not sure if any cultures will be positive; however, he may need some bone debridement as well and surgical intervention to see if we can improve his chances of healing, so I am going to refer him to Podiatry for evaluation. I will place a call out to Dr. Ortiz regarding the patient to update him on what we have done for him. I did explain to the patient that if we do get a culture that is positive for antibiotics, that it would likely benefit him to have IV PICC line placed for long-term antibiotics and to go ahead and resume hyperbaric oxygen as I think that would give him the best chance of healing. Also, we did request for the manager membership to come and evaluate his offloading device, and he was able to bring us a boot that hopefully will help offload the forefoot and also help in some of the management of the wound, so the patient is going to be seen by Podiatry and consider follow up with us back for hyperbarics. In the meantime, I will continue with Iodosorb and Mepitel Transfer. NOVA COUGHLIN MD CM:PNTRANS [phone] NOVA COUGHLIN M.D. 01/28/17 0520 interface
== END ==
LOC: WOUNDCARE 03:37
DX: E11.621 Type 2 diabetes mellitus with foot ulcer (principal); L97.512 Non-pressure chronic ulcer of other part of right foot with fat layer exposed; E11.69 Type 2 diabetes mellitus with other specified complication; M86.471 Chronic osteomyelitis with draining sinus, right ankle and foot

== ENCOUNTER → 2017-02-03 | Outpatient (CLI) | payer MEDICARE, BC ==
--- NOTE | ~2017-02-03 | PR ---
[place], [place] PROGRESS NOTE NAME: JAMIA JAMIL [facility] #: [id number] UNIT #: [id number] ROOM: DOCTOR: CED VelaNOVA BIRTHDATE: [birth year] DOS: 02/03/2017 The patient comes in for followup wound care visit. CHIEF COMPLAINT: Diabetic foot ulcer. HISTORY OF PRESENT ILLNESS: A 76-year-old male with history of a nonhealing diabetic ulcer that has been chronic for a year and a half without any healing. There is associated osteomyelitis. No bone is exposed. The wound remains superficial, but nonhealing and no improvement with wound care at all. The patient has a consultation setup for Podiatry, Dr. Ortiz to assess and revisit the situation to see if any possible bone debridement can be done. The patient continues to have a lot of drainage. No fevers or chills. No changes in redness. He had a new offloading device given to him last week; however, he felt that it was difficult to walk-in and caused knee pain in this left leg when he was wearing it, so he really does not like to wear this. SOCIAL HISTORY: He also does not really like the boot as he drives and cannot wear the boot while he is driving. He reports no changes with his sugar. PHYSICAL EXAMINATION: VITAL SIGNS: His temp is 98.8, pulse of 75, respirations 18, blood pressure is 166/60. WOUND EXAMINATION: His wound is 1.8 x 2.1 x 0.1. It looks fairly clean less erythema overall. There is really no visible necrotic tissue. There is a minimal callus present. The erythema appears slightly improved overall. No debridement was done today. No undermining was noted. ASSESSMENT AND PLAN: Chronic diabetic foot ulcer with osteomyelitis, nonhealing and refractory. He is going to undergo a Podiatry consultation, possible bone debridement. I did mention that if he does end up requiring surgery at some point that hyperbarics can still be offered as adjuvant treatment to help close the wound and treat infection. I did also advise him to hold off on the offloading device for now if it is causing him any pain in his other leg. Follow up in 1 week in Wound Clinic. Continue Iodosorb and Mepitel transfer. [place], [place] PROGRESS NOTE NAME: JAMIA JAMIL UNIT #: [id number] ROOM: DOCTOR: NOVA COUGHLIN M.D. BIRTHDATE: [birth year] NOVA COUGHLIN MD CM:FAYE [phone] NOVA COUGHLIN M.D. 02/04/17 0411 interface
== END ==
LOC: WOUNDCARE 11:50
DX: E11.621 Type 2 diabetes mellitus with foot ulcer (principal); L97.512 Non-pressure chronic ulcer of other part of right foot with fat layer exposed; E11.69 Type 2 diabetes mellitus with other specified complication; M86.471 Chronic osteomyelitis with draining sinus, right ankle and foot

== ENCOUNTER → 2017-02-11 | Outpatient (CLI) | payer MEDICARE, BC ==
--- NOTE | ~2017-02-11 | PR ---
[place], [place] PROGRESS NOTE NAME: JAMIA JAMIL [facility] #: [id number] UNIT #: [id number] ROOM: DOCTOR: CED VelaNOVA BIRTHDATE: [birth year] DOS: 02/11/2017 REGULAR SCHEDULED WOUND CARE VISIT CHIEF COMPLAINT: Diabetic foot ulcer. The patient is a 76-year-old male with a history of a nonhealing diabetic ulcer for a year and a half without any healing. He was seen by Dr. Ortiz last week for consultation regarding any type of surgical intervention for him. Dr. Ortiz has already ordered repeat Doppler studies to be done, which the patient is scheduled to have done later this week or early next week. The patient also had some difficulty with the new offloading devices that we had given to him and it had caused him some discomfort with his left foot because of it, so we told him to not use it for now. In any case, he has no specific complaints. He thinks it is draining a little bit less overall; there are no fevers or chills and no pain. PHYSICAL EXAMINATION: VITAL SIGNS: He is afebrile, pulse of 60, respirations 18, blood pressure is 136/62 right great toe ulcer is measuring 1.8 x 1.8 x 0.1. There is some surrounding callus. There is some chronic erythema, which is mild to moderate, but overall stable from prior. There is no purulence or undermining noted. A debridement was done, the tissue removed was hyperkeratotic callus as well as fibrin, slough and subcutaneous tissue. This was performed with a scalpel, forceps and scissors. The patient tolerated the debridement well. There is minimal to moderate bleeding that was controlled with pressure. Post-debridement measurements are 2 x 1.8 x 0.1. ASSESSMENT AND PLAN: Diabetic foot ulcer, which is chronic and nonhealing likely secondary to osteomyelitis noted on bone scan. The patient underwent trial hyperbaric without improvement. He has been on antibiotics orally. We do not have a bone culture. We have referred the patient to Podiatry who is starting a workup from their standpoint, so we are awaiting further information from Podiatry regarding what the possible plan would be. So, we will go ahead and continue with the current dressing, which is Iodosorb and Mepitel transfer and have him follow back up in one week with us unless he undergoes some surgical intervention by Podiatry. [place], [place] PROGRESS NOTE NAME: JAMIA JAMIL UNIT #: [id number] ROOM: DOCTOR: NOVA COUGHLIN M.D. BIRTHDATE: [birth year] NOVA COUGHLIN MD CM:FAYE [phone] NOVA COUGHLIN M.D. 02/12/17 0329 interface
== END ==
LOC: WOUNDCARE 02:44
DX: E11.621 Type 2 diabetes mellitus with foot ulcer (principal); L97.512 Non-pressure chronic ulcer of other part of right foot with fat layer exposed; E11.69 Type 2 diabetes mellitus with other specified complication; M86.471 Chronic osteomyelitis with draining sinus, right ankle and foot

== ENCOUNTER → 2017-02-19 | Outpatient (CLI) | payer MEDICARE, BC ==
--- NOTE | ~2017-02-19 | PR ---
[place], [place] PROGRESS NOTE [id number] UNIT #: [id number] ROOM: DOCTOR: CED VelaNOVA BIRTHDATE: [birth year] DOS: 02/19/2017 CHIEF COMPLAINT: Diabetic foot ulcer. HISTORY OF PRESENT ILLNESS: A 76-year-old male with type 2 diabetes of marginal control, who has had a nonhealing ulcer of the right great toe for a year and a half. We sent him to Podiatry for possible surgical opinion, who he was supposed to be followed up with today, but he has not had a followup appointment set up yet. The patient comes in without any specific complaints. He says overall the wound is draining just as much as it did before. He is using his postop shoe that he had before without any changes. No fevers or chills are noted. PHYSICAL EXAMINATION: VITAL SIGNS: Temperature is 97.8, pulse of 64, respirations 18, blood pressure is 158/80. SKIN: The wound margins are 2 x 1.3 x 0.1. There is some small amount of callus still present around the periwound. There is granulation tissue and some minimal fibrin slough present. The overall redness and erythema of the wound looks stable. Debridement was done. The tissue removed with fibrin slough, subcutaneous tissue as well as nonviable hyperkeratotic tissue. There was moderate amount of bleeding that was controlled with pressure. Post-debridement measurements are as follows: 2 x 1.4 x 0.1. The patient tolerated the debridement well. ASSESSMENT AND PLAN: Diabetic foot ulcer, nonhealing, possibly there was some secondary osteomyelitis. We sent him to Podiatry for their opinion. I spoke to Dr. Ortiz today and he will set him up for a followup appointment. Apparently, he repeated his peripheral vascular studies, a biopsy was also done and he believes offloading is one of the major components of his nonhealing which we have had trouble with before or so. We will have him follow back up with Dr. Ortiz's office for their opinion and hopefully see some healing since. In the meantime, we will continue with the present dressing. [place], [place] PROGRESS NOTE NAME: JAMIA JAMIL UNIT #: [id number] ROOM: DOCTOR: NOVA COUGHLIN M.D. BIRTHDATE: [birth year] NOVA COUGHLIN MD CM:FAYE [id number] NOVA COUGHLIN M.D. 02/21/17 1531 interface
== END ==
LOC: WOUNDCARE 02:29
DX: E11.621 Type 2 diabetes mellitus with foot ulcer (principal); L97.512 Non-pressure chronic ulcer of other part of right foot with fat layer exposed; E11.69 Type 2 diabetes mellitus with other specified complication; M86.471 Chronic osteomyelitis with draining sinus, right ankle and foot; L84 Corns and callosities

== ENCOUNTER 2017-10-31 16:31 | Inpatient (IN) | payer MEDICARE, BC ==
[~2017-10-31] VITALS: Ht 162.5 cm; Wt 107.5 kg
--- NOTE | ~2017-10-31 | CON ---
[place], [place] REPORT OF CONSULTATION NAME: JMAIA JAMIL UNIT #: [id number] ROOM: 508 DOCTOR: MICHOACANO HALL,MACKENZIE Reagan BIRTHDATE: [birth year] DOS: 11/01/2017 ADDENDUM After reviewing the chart, labs and radiographs, I agree with the above plans as described above. We will follow the patient up clinically and adjust accordingly. Thank you for allowing me to see the patient. MACKENZIE RÍOS MD CM:CONSTR:REPORT OF CONSULTATION 45 11/01/172058 interface
--- NOTE | ~2017-10-31 | CON ---
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 He has had a chronic wound there for a few years. He follows with Dr. Goddard with ankle and foot for it. He was sent to the hospital by Dr. García, his attending. He is for the last few months had issues with poor appetite, some intermittent nausea as well as intermittent diarrhea and constipation. He has lost thinks at least 15 pounds or so, also seems to possibly have a some issue with depression. He had a nuclear bone scan done, which showed possible osteo of the right great toe, as well as bone scan showed increased activity around the superior aspect of the left acetabulum and intertrochanteric area of the left femur. He has been having pain of the left thigh for the last few weeks. He states he did extend the leg out at a doctor's visit for a period of time while the doctor was checking his foot and seems to be under the impression that he strained his quadriceps at that time. He had an x-ray which showed cortical destruction of the distal medial aspect of the proximal phalanx of the great toe consistent with osteomyelitis as well as osteoarthritis. He has had no fevers or chills. He does have leukocytosis with WBC 17.9 on admission and now down to 15.3. Again, no fevers or chills at home or here at the hospital. Admitting blood cultures are negative. There are no cultures from the toe. He had lactic acid of 3.8 on admission, which is down to 1.9 currently. RADIOLOGY: He has had no other imaging. PAST MEDICAL HISTORY: As above as well as anxiety, depression, AFib, BPH, chronic kidney disease, coronary artery disease, diabetes, non-Hodgkin's lymphoma, hyperlipidemia, hypertension, hypothyroidism, iron deficiency anemia, peripheral neuropathy, vitamin B12 deficiency, vitamin D deficiency, left hip arthroplasty, back surgery, cholecystectomy, hernia repair, CABG. SOCIAL HISTORY: Nonsmoker, nondrinker. No illicit drug use. FAMILY MEDICAL HISTORY: Brother, sister and both parents all with heart disease. ALLERGIES: No known drug allergies. HOME MEDICATIONS: No antibiotics at home. CURRENT MEDICATIONS: Vitamin D, Bactroban, Zestril, Feosol, Cardizem, vancomycin, Synthroid, Xarelto, Remeron, Lopressor, Levemir, Zosyn, [place], Zofran, milk of mag, Dulcolax, Tylenol. LABORATORY DATA: WBC is 15.3, platelets 356. Elevation of lymphocytes. Sed rate of 123, BUN 18, creatinine 1.3. LFTs within normal limits. REVIEW OF SYSTEMS: As above in history of present illness. No rash or itch. No fevers or shaking chills. No peripheral edema. No headache or dizziness. No chest pain or palpitations. No issues with urination. Further review of [place], [place] REPORT OF CONSULTATION NAME: JAMIA JAMIL UNIT #: [id number] ROOM: 508 DOCTOR: BILL PEARSON,DECEMBER BIRTHDATE: [birth year] systems unremarkable. He does have some postnasal drip at night with nonproductive cough. PHYSICAL EXAMINATION: VITAL SIGNS: Temperature 98.6, pulse 63, respirations 19, BP 117/49. GENERAL: A 76-year-old male, nontoxic in appearance. HEAD, EYES, EARS, NOSE AND THROAT: Normocephalic. No thrush. NECK: No cervical lymphadenopathy. LUNGS: Clear to auscultation bilaterally. Respirations even and unlabored. HEART: Regular rhythm. No murmur appreciated. ABDOMEN: Soft, nontender, nondistended, positive bowel sounds. EXTREMITIES: No edema. Right great toe with a medial toe wound that is fairly dry, of little depth. There is no odor, no discharge and no cellulitis. There is no erythema or edema of the toe. Left thigh is unremarkable. No erythema or swelling, areas of fluctuance. SKIN: Warm, dry, free of rashes. ASSESSMENT AND PLAN: Right great toe ulceration without clinical signs of infection or osteomyelitis, though bone scan and x-ray are suspicious. At this point, I would agree with Dr. Ganrett with Podiatry. Stop all antibiotics. Wait for an MRI on Friday. If that comes back with active osteomyelitis, he should have a bone biopsy. We have no active cultures to go on and the toe is not impressive for osteomyelitis. A bigger issue is ongoing concern is he needs workup for his poor appetite, weight loss, etc. He has leukocytosis, but it is with significant elevation of lymphocytes, not neutrophils. At this point, we will stop the antibiotics and monitor closely. Case discussed with Dr. Mackenzie Ríos. SAAD KHAN CNP MACKENZIE RÍOS MD CM:CONSTR:REPORT OF CONSULTATION 36 11/02/17 1418 interface
--- NOTE | ~2017-10-31 | CON ---
[place], [place] REPORT OF CONSULTATION NAME: JAMIA JAMIL [facility] #: [id number] UNIT #: [id number] ROOM: 508 DOCTOR: MALLIKA MCCARTY DPM BIRTHDATE: [birth year] DOS: 11/01/2017 HISTORY OF PRESENT ILLNESS: The patient presents as a 76-year-old male who was admitted on 10/31/2017 with possible osteomyelitis of the right great toe. The patient has seen Dr. Goddard at her office along with Dr. Virk for chronic wound to the right hallux. The patient was seen most recently at the office on 10/29/2017. PAST MEDICAL HISTORY: Diabetes, depression, coronary artery disease, chronic kidney disease, BPH, atrial fibrillation, anxiety, non-Hodgkin's lymphoma, hyperlipidemia, hypertension, hypothyroidism, iron deficiency microcytic anemia, peripheral neuropathy, ulcer to right hallux, vitamin B12 deficiency, vitamin D deficiency. PAST SURGICAL HISTORY: Status post CABG x 4, hernia repair, intravascular stent placement, cholecystectomy, back surgery, arthroplasty of left hip. SOCIAL HISTORY: Denies smoking, illicit drug use or alcohol. FAMILY HISTORY: Mother at age 57, [place]. Father at age 63[place]. Brother 60+, [place]. Sister at age 59, [place]. Brother 79[place]. ALLERGIES: No known allergies. LOWER EXTREMITY EXAMINATION: Pedal pulses palpable. There is decreased hair growth, bilateral. Epicritic sensation is decreased, bilateral. Cavus type foot with equinus plantar flex, first metatarsal. There is an ulceration to the medial right hallux, which is full thickness. There are no signs of purulent drainage or foul odor. There is localized erythema, but no sinus tract. DIAGNOSTIC STUDIES: Results of the bone scan and radiographs reveal possible osteomyelitis to the right hallux, specifically looking at the radiographs of the right hallux, there is possible erosive changes to the medial distal aspect of the proximal phalanx head. ASSESSMENT: Possible osteomyelitis, right hallux; diabetic ulceration. PLAN: Evaluation and management. Discussed with the patient. We will obtain an MRI to check for more specifically signs of osteomyelitis. Discussed with the patient that a bone scan is sensitive, but nonspecific, that an MRI is a better tool to evaluate for osteomyelitis. If the MRI is positive for osteomyelitis, the patient will be taken for surgical intervention with biopsy of the bone along with bone cultures. Ordered Bactroban and gauze dressing to be applied daily. The patient had recent vascular studies at the office performed. We will evaluate those before progressing to surgical intervention. Thanks for consultation. The patient will be seen after the MRI on Friday and discuss possible surgical options if it is positive. [place], [place] REPORT OF CONSULTATION NAME: JAMIA JAMIL UNIT #: [id number] ROOM: 508 DOCTOR: MALLIKA MCCARTY DPM BIRTHDATE: [birth year] MALLIKA MCCARTY DPM CM:CONSTR:REPORT OF CONSULTATION 1034 11/01/17 1109 interface
[2017-10-31 16:37] VITALS: BP 137/57
[2017-10-31 17:31] LABS: HEMATOCRIT 32.5 % (42.0-52.0); HEMOGLOBIN 10.2 g/dl (14.0-18.0); MEAN CELL VOLUME 73.2 fl (80.0-94.0); MEAN CORPUSCULAR HGB CONC 31.4 g/dl (33.0-37.0); MEAN PLATELET VOLUME 10.1 fl (9.6-12.3); PLATELET COUNT AUTOMATED 409 10*3/uL (130-400); RED BLOOD COUNT 4.44 10*6/uL (4.50-5.90); RED CELL DISTRI WIDTH 16.2 % (0-14.5); WHITE BLOOD COUNT 17.9 10*3/uL (4.8-10.8)
[2017-10-31] MEDS ORDERED: GLUCOPHAGE1000 MG PO (17:39)
[2017-10-31 17:40] LABS: ACT PARTIAL THROMBO TIME 30.4 SECONDS (20.8-31.5); INTERNATIONAL NORM RATIO 1.1 (2.0-3.5)
[2017-10-31] MEDS ORDERED: CARTIA XT120 MG PO (17:40)
[2017-10-31] MEDS ORDERED: SYNTHROID,LEVO75 MCG PO (17:41)
[2017-10-31] MEDS ORDERED: ZESTRIL,PRINIVIL5 MG PO (17:41)
[2017-10-31] MEDS ORDERED: REMERON15 M2 PO (17:42)
[2017-10-31] MEDS ORDERED: NORCO 5-325 TA1 EACH PO (17:43)
[2017-10-31] MEDS ORDERED: FEOSOL325 MG PO (17:43)
[2017-10-31] MEDS ORDERED: BACLOFEN20 M1 PO (17:45)
[2017-10-31] MEDS ORDERED: LANTUS SOL100 UNIT/1 SC (17:47)
[2017-10-31 17:49] LABS: ALBUMIN 2.7 gm/dl (3.1-4.5); ALKALINE PHOSPHATASE 117 U/L (45-117); BUN 22 mg/dl (7-24); CHLORIDE 103 mmol/L (98-107); CREATININE 1.38 mg/dL (0.70-1.30); LIPASE 108 U/L (73-393); POTASSIUM 4.5 mmol/L (3.5-5.1); SGOT/AST 22 IU/L (3-35); SGPT/ALT 33 U/L (12-78); SODIUM 138 mmol/L (136-145); TOTAL PROTEIN 8.6 gm/dL (6.4-8.2)
[2017-10-31] MEDS ORDERED: LOPRESSOR25 MG PO (17:50)
[2017-10-31 17:54] LABS: ATYPICAL LYMPHS 2 % (0-0); TOTAL CELLS COUNTED 100 #CELLS
[2017-10-31 17:55] LABS: BURR CELLS FEW; MICROCYTOSIS SLIGHT; OVALOCYTES FEW; PLATELET SUFFICIENCY NORMAL (NORMAL)
[2017-10-31 18:28] VITALS: BP 151/73
[2017-10-31 20:00] VITALS: BP 123/61
[2017-10-31 20:25] VITALS: BP 155/44
[2017-10-31 22:30] VITALS: BP 142/62
[2017-11-01] VITALS: BP 128/57
[2017-11-01 06:46] LABS: HEMATOCRIT 30.9 % (42.0-52.0); HEMOGLOBIN 9.9 g/dl (14.0-18.0); MEAN CORPUSCULAR HGB 23.4 pg (27.0-31.0); MEAN PLATELET VOLUME 10.3 fl (9.6-12.3); PLATELET COUNT AUTOMATED 356 10*3/uL (130-400); RED BLOOD COUNT 4.23 10*6/uL (4.50-5.90); RED CELL DISTRI WIDTH 16.5 % (0-14.5); WHITE BLOOD COUNT 15.3 10*3/uL (4.8-10.8)
[2017-11-01 07:18] LABS: ALBUMIN 2.5 gm/dl (3.1-4.5); BUN 18 mg/dl (7-24); CHLORIDE 103 mmol/L (98-107); CHOLESTEROL 93 mg/dL (<200); HDL CHOLESTEROL 36 mg/dl (40-60); LDL CHOLESTEROL 27 mg/dL (9-159); PHOSPHOROUS 3.8 mg/dL (2.5-4.9); POTASSIUM 4.3 mmol/L (3.5-5.1); SGOT/AST 34 IU/L (3-35); SGPT/ALT 28 U/L (12-78); SODIUM 138 mmol/L (136-145); TOTAL PROTEIN 7.9 gm/dL (6.4-8.2); TRIGLYCERIDES 150 mg/dl (<150); VLDL CHOLESTEROL 30 mg/dL (6-40)
[2017-11-01 07:20] LABS: ATYPICAL LYMPHS 7 % (0-0); PLATELET SUFFICIENCY NORMAL (NORMAL); TOTAL CELLS COUNTED 100 #CELLS
[2017-11-01 07:22] LABS: BURR CELLS MANY; MICROCYTOSIS SLIGHT; OVALOCYTES FEW
[2017-11-01 07:25] LABS: ALKALINE PHOSPHATASE 104 U/L (45-117)
[2017-11-01 08:00] VITALS: BP 122/52
[2017-11-01 08:30] LABS: VITAMIN D, 25-HYDROXY 19.8 ng/mL (30-100)
[2017-11-01 12:00] VITALS: BP 127/51
[2017-11-01 16:00] VITALS: BP 117/49
[2017-11-01 20:00] VITALS: BP 145/58
[2017-11-01 21:45] VITALS: BP 140/60
[2017-11-02] VITALS: BP 132/52
[2017-11-02 05:54] LABS: HEMATOCRIT 29.9 % (42.0-52.0); HEMOGLOBIN 9.5 g/dl (14.0-18.0); MEAN CELL VOLUME 73.5 fl (80.0-94.0); MEAN CORPUSCULAR HGB 23.3 pg (27.0-31.0); MEAN CORPUSCULAR HGB CONC 31.8 g/dl (33.0-37.0); MEAN PLATELET VOLUME 9.9 fl (9.6-12.3); PLATELET COUNT AUTOMATED 355 10*3/uL (130-400); RED BLOOD COUNT 4.07 10*6/uL (4.50-5.90); RED CELL DISTRI WIDTH 16.6 % (0-14.5); WHITE BLOOD COUNT 15.3 10*3/uL (4.8-10.8)
[2017-11-02 06:11] LABS: ALBUMIN 2.3 gm/dl (3.1-4.5); ALKALINE PHOSPHATASE 98 U/L (45-117); BUN 13 mg/dl (7-24); CHLORIDE 103 mmol/L (98-107); CREATININE 1.18 mg/dL (0.70-1.30); POTASSIUM 3.6 mmol/L (3.5-5.1); SGOT/AST 21 IU/L (3-35); SGPT/ALT 29 U/L (12-78); SODIUM 139 mmol/L (136-145); TOTAL PROTEIN 7.5 gm/dL (6.4-8.2)
[2017-11-02 06:28] LABS: ATYPICAL LYMPHS 7 % (0-0); BASOPHILS 1 % (0-1); BURR CELLS MODERATE; OVALOCYTES FEW; PLATELET SUFFICIENCY NORMAL (NORMAL); TOTAL CELLS COUNTED 100 #CELLS
[2017-11-02 08:00] VITALS: BP 144/58
[2017-11-02 12:00] VITALS: BP 143/66
[2017-11-02] MEDS ORDERED: Vitamin D PO (13:28)
== END 2017-11-02 14:20 | disposition home or self-care (01) | DRG 637 ==
LOC: ED 16:32 → EDHOLD 17:15 → 5E 17:58
PROVIDERS: Emergency Medicine; Internal Medicine
DX: E11.69 Type 2 diabetes mellitus with other specified complication (principal); E43 Unspecified severe protein-calorie malnutrition; M86.171 Other acute osteomyelitis, right ankle and foot; E87.2 Acidosis; E11.621 Type 2 diabetes mellitus with foot ulcer; E11.42 Type 2 diabetes mellitus with diabetic polyneuropathy; E11.22 Type 2 diabetes mellitus with diabetic chronic kidney disease; I48.0 Paroxysmal atrial fibrillation; D47.3 Essential (hemorrhagic) thrombocythemia; I25.10 Atherosclerotic heart disease of native coronary artery without angina pectoris; I12.9 Hypertensive chronic kidney disease with stage 1 through stage 4 chronic kidney disease, or unspecified chronic kidney disease; N18.3 Chronic kidney disease, stage 3 (moderate); N40.1 Benign prostatic hyperplasia with lower urinary tract symptoms; F32.9 Major depressive disorder, single episode, unspecified; F41.9 Anxiety disorder, unspecified; E78.5 Hyperlipidemia, unspecified; D50.9 Iron deficiency anemia, unspecified; M19.071 Primary osteoarthritis, right ankle and foot; L97.519 Non-pressure chronic ulcer of other part of right foot with unspecified severity; E53.8 Deficiency of other specified B group vitamins; E55.9 Vitamin D deficiency, unspecified; E03.9 Hypothyroidism, unspecified; Z79.4 Long term (current) use of insulin; Z79.84 Long term (current) use of oral hypoglycemic drugs; Z90.49 Acquired absence of other specified parts of digestive tract; Z95.1 Presence of aortocoronary bypass graft; Z82.49 Family history of ischemic heart disease and other diseases of the circulatory system; Z68.27 Body mass index [BMI] 27.0-27.9, adult

== ENCOUNTER → 2017-12-04 | Outpatient (CLI) | payer MEDICARE, BC ==
[~2017-12-04] MED LIST changes: +BACLOFEN20 M1 PO; +CARTIA XT120 MG PO; +FEOSOL325 MG PO; +GLUCOPHAGE1000 MG PO; +LANTUS SOL100 UNIT/1 SC; +NORCO 5-325 TA1 EACH PO; +REMERON15 M2 PO; +SYNTHROID,LEVO75 MCG PO; +Vitamin D PO; +ZESTRIL,PRINIVIL5 MG PO
== END | disposition home or self-care (01) ==
LOC: CT 13:39
DX: M16.12 Unilateral primary osteoarthritis, left hip (principal); M85.88 Other specified disorders of bone density and structure, other site

== ENCOUNTER → 2017-12-09 | Outpatient (CLI) | payer MEDICARE, BC ==
[2017-12-09 13:40] LABS: ALBUMIN 2.7 gm/dl (3.1-4.5); CREATININE 2.04 mg/dL (0.70-1.30); TOTAL PROTEIN 8.8 gm/dL (6.4-8.2)
== END | disposition home or self-care (01) ==
LOC: LAB 12:45
PROVIDERS: Family Medicine
DX: N39.0 Urinary tract infection, site not specified (principal)

== ENCOUNTER → 2017-12-10 | Outpatient (CLI) | payer MEDICARE, BC | END | disposition home or self-care (01) | LOC: CT 01:05 | DX: N28.1 Cyst of kidney, acquired (principal); K63.89 Other specified diseases of intestine; R11.0 Nausea; Z90.49 Acquired absence of other specified parts of digestive tract ==

== ENCOUNTER → 2018-01-05 | Outpatient (CLI) | payer MEDICARE, BC | END | disposition home or self-care (01) | LOC: MRI 13:12 | DX: M51.26 Other intervertebral disc displacement, lumbar region (principal); M51.27 Other intervertebral disc displacement, lumbosacral region; M48.061 Spinal stenosis, lumbar region without neurogenic claudication; M47.896 Other spondylosis, lumbar region; M47.897 Other spondylosis, lumbosacral region; Z98.1 Arthrodesis status ==

== ENCOUNTER → 2018-02-05 | Outpatient (CLI) | payer MEDICARE, BC | END | disposition home or self-care (01) | LOC: MRI 12:47 | DX: M79.652 Pain in left thigh (principal) ==

== ENCOUNTER 2018-06-04 13:08 | Emergency (ER) | payer MEDICARE, BC ==
[~2018-06-04] VITALS: Ht 185.4 cm; Wt 90.7 kg
[2018-06-04] MEDS ORDERED: NOVOLIN 70100 UNIT/1 SQ (13:17)
[2018-06-04] MEDS ORDERED: GLUCOTROL10 MG PO (13:18)
[2018-06-04] MEDS ORDERED: LOPRESSOR25 MG PO (13:18)
[2018-06-04] MEDS ORDERED: CARTIA XT120 MG PO (13:18)
[2018-06-04] MEDS ORDERED: FLOMAX0.4 MG PO (13:19)
[2018-06-04] MEDS ORDERED: NORCO 10-325 T1 EACH PO (13:19)
[2018-06-04] MEDS ORDERED: ZOCOR20 MG PO (13:19)
[2018-06-04] MEDS ORDERED: Synthroid,Levo75 MCG PO (13:19)
[2018-06-04] MEDS ORDERED: VITAMIN B121000 MC1 PO (13:19)
[2018-06-04] MEDS ORDERED: COUMADIN2.5 M1 PO (13:20)
[2018-06-04] MEDS ORDERED: VITRON-C TABLE1 EACH PO (13:20)
[2018-06-04 13:35] LABS: BASO % 0.1 % (0.0-1.0); HEMATOCRIT 31.1 % (42.0-52.0); LYMPH # 3.1 10*3/uL (1.3-4.4); MEAN CORPUSCULAR HGB 23.1 pg (27.0-31.0); MEAN CORPUSCULAR HGB CONC 32.2 g/dl (33.0-37.0); MEAN PLATELET VOLUME 9.3 fl (9.6-12.3); MONO # 1.2 10*3/uL (0.1-1.0); MONO % 5.2 % (3.0-9.0); NEUT # 17.8 10*3/uL (2.3-7.9); PLATELET COUNT AUTOMATED 371 10*3/uL (130-400); RED BLOOD COUNT 4.32 10*6/uL (4.50-5.90); RED CELL DISTRI WIDTH 17.2 % (0-14.5); WHITE BLOOD COUNT 22.3 10*3/uL (4.8-10.8)
[2018-06-04 13:54] LABS: ALBUMIN 2.6 gm/dl (3.1-4.5); CREATININE 1.46 mg/dL (0.70-1.30); POTASSIUM 3.5 mmol/L (3.5-5.1); TOTAL PROTEIN 8.2 gm/dL (6.4-8.2)
[2018-06-04 18:19] LABS: BILIRUBIN NEGATIVE (NEGATIVE); BLOOD 2+ (NEGATIVE); CLARITY SL CLOUDY (CLEAR); COLOR YELLOW (YELLOW); GLUCOSE TRACE (NEGATIVE); KETONE NEGATIVE (NEGATIVE); LEUKO ESTERASE NEGATIVE (NEGATIVE); NITRITE NEGATIVE (NEGATIVE); UROBILINOGEN 0.2 E.U./dl (0.2-1.0)
[2018-06-04 18:45] LABS: BACTERIA 2+; RBC 0-2 rbc/hpf (0-2)
== END 2018-06-04 19:36 | disposition short-term general hospital (02) ==
LOC: ED 13:08
PROVIDERS: Emergency Medicine
DX: L08.9 Local infection of the skin and subcutaneous tissue, unspecified (principal); R53.1 Weakness; R63.0 Anorexia; E78.5 Hyperlipidemia, unspecified; I12.9 Hypertensive chronic kidney disease with stage 1 through stage 4 chronic kidney disease, or unspecified chronic kidney disease; E11.22 Type 2 diabetes mellitus with diabetic chronic kidney disease; N18.9 Chronic kidney disease, unspecified; E03.9 Hypothyroidism, unspecified; I25.10 Atherosclerotic heart disease of native coronary artery without angina pectoris; M86.8X7 Other osteomyelitis, ankle and foot; I48.91 Unspecified atrial fibrillation; Z79.899 Other long term (current) drug therapy; Z79.4 Long term (current) use of insulin; Z79.02 Long term (current) use of antithrombotics/antiplatelets

== ENCOUNTER 2019-03-23 14:20 | Emergency (ER) | payer MEDICARE, OTHER ==
[~2019-03-23] VITALS: Wt 78.9 kg
[~2019-03-23 14:20] MED LIST changes: +COUMADIN2.5 M1 PO; +GLUCOTROL10 MG PO; +NORCO 10-325 T1 EACH PO; +NOVOLIN 70100 UNIT/1 SQ; +Synthroid,Levo75 MCG PO; +VITAMIN B121000 MC1 PO; +VITRON-C TABLE1 EACH PO; +ZOCOR20 MG PO
[2019-03-23 16:14] LABS: BASO # 0.1 10*3/uL (0.0-0.1); BASO % 0.4 % (0.0-1.0); EOS # 0.1 10*3/uL (0.0-0.4); EOS % 0.7 % (1.0-4.0); HEMATOCRIT 31.5 % (42.0-52.0); HEMOGLOBIN 9.8 g/dl (14.0-18.0); LYMPH # 2.2 10*3/uL (1.3-4.4); LYMPH % 18.7 % (27.0-41.0); MEAN CELL VOLUME 75.7 fl (80.0-94.0); MEAN CORPUSCULAR HGB 23.6 pg (27.0-31.0); MEAN CORPUSCULAR HGB CONC 31.1 g/dl (33.0-37.0); MEAN PLATELET VOLUME 9.9 fl (9.6-12.3); MONO # 0.9 10*3/uL (0.1-1.0); MONO % 7.7 % (3.0-9.0); NEUT # 8.6 10*3/uL (2.3-7.9); NEUT % 72.2 % (47.0-73.0); PLATELET COUNT AUTOMATED 414 10*3/uL (130-400); RED BLOOD COUNT 4.16 10*6/uL (4.50-5.90); RED CELL DISTRI WIDTH 20.2 % (0-14.5); WHITE BLOOD COUNT 11.9 10*3/uL (4.8-10.8)
[2019-03-23 16:26] LABS: ACT PARTIAL THROMBO TIME 34.5 SECONDS (20.0-32.1); INTERNATIONAL NORM RATIO 2.4 (2.0-3.5)
[2019-03-23 16:33] LABS: ALBUMIN 2.3 gm/dl (3.1-4.5); ALKALINE PHOSPHATASE 106 U/L (45-117); BUN 24 mg/dl (7-24); CHLORIDE 100 mmol/L (98-107); LIPASE 65 U/L (73-393); POTASSIUM 4.1 mmol/L (3.5-5.1); SGOT/AST 15 IU/L (3-35); SGPT/ALT 22 U/L (12-78); SODIUM 135 mmol/L (136-145); TOTAL PROTEIN 7.3 gm/dL (6.4-8.2)
[2019-03-23 16:34] LABS: TROPONIN I < 0.015 ng/ml (<0.045)
== END 2019-03-23 19:45 | disposition home or self-care (01) ==
LOC: ED 14:20
PROVIDERS: Nurse Practitioner Family
DX: S71.002A Unspecified open wound, left hip, initial encounter (principal); R79.1 Abnormal coagulation profile; Z96.642 Presence of left artificial hip joint; I48.91 Unspecified atrial fibrillation; I25.10 Atherosclerotic heart disease of native coronary artery without angina pectoris; E03.9 Hypothyroidism, unspecified; E78.5 Hyperlipidemia, unspecified; M86.9 Osteomyelitis, unspecified; E11.22 Type 2 diabetes mellitus with diabetic chronic kidney disease; I12.9 Hypertensive chronic kidney disease with stage 1 through stage 4 chronic kidney disease, or unspecified chronic kidney disease; N18.3 Chronic kidney disease, stage 3 (moderate); Z79.4 Long term (current) use of insulin; X58.XXXA Exposure to other specified factors, initial encounter; Y93.89 Activity, other specified; Y92.89 Other specified places as the place of occurrence of the external cause; Y99.8 Other external cause status

== ENCOUNTER 2020-01-07 11:39 | Inpatient (IN) | payer MEDICARE, OTHER ==
[~2020-01-07] VITALS: Ht 187.9 cm; Wt 93.1 kg
[2020-01-07 11:46] VITALS: BP 123/56
[2020-01-07 12:43] LABS: BASO % 0.2 % (0.0-1.0); EOS # 0.2 10*3/uL (0.0-0.4); EOS % 1.4 % (1.0-4.0); HEMATOCRIT 38.6 % (42.0-52.0); LYMPH # 3.1 10*3/uL (1.3-4.4); LYMPH % 25.1 % (27.0-41.0); MEAN CELL VOLUME 84.3 fl (80.0-94.0); MEAN CORPUSCULAR HGB 27.5 pg (27.0-31.0); MEAN CORPUSCULAR HGB CONC 32.6 g/dl (33.0-37.0); MEAN PLATELET VOLUME 9.8 fl (9.6-12.3); MONO # 0.8 10*3/uL (0.1-1.0); MONO % 6.6 % (3.0-9.0); NEUT # 8.1 10*3/uL (2.3-7.9); NEUT % 66.4 % (47.0-73.0); PLATELET COUNT AUTOMATED 289 10*3/uL (130-400); RED BLOOD COUNT 4.58 10*6/uL (4.50-5.90); RED CELL DISTRI WIDTH 14.9 % (0-14.5); WHITE BLOOD COUNT 12.2 10*3/uL (4.8-10.8)
[2020-01-07 12:54] LABS: ACT PARTIAL THROMBO TIME 32.2 SECONDS (20.0-32.1); INTERNATIONAL NORM RATIO 2.3 (2.0-3.5)
[2020-01-07 12:59] LABS: ALBUMIN 2.9 gm/dl (3.1-4.5); ALKALINE PHOSPHATASE 76 U/L (45-117); BUN 30 mg/dl (7-24); CHLORIDE 101 mmol/L (98-107); CREATININE 1.27 mg/dL (0.70-1.30); LIPASE 52 U/L (73-393); POTASSIUM 4.3 mmol/L (3.5-5.1); SGOT/AST 13 IU/L (3-35); SGPT/ALT 19 U/L (12-78); SODIUM 133 mmol/L (136-145); TOTAL PROTEIN 7.8 gm/dL (6.4-8.2); TROPONIN I < 0.015 ng/ml (<0.045)
[2020-01-07] MEDS ORDERED: LANTUS SOL100 UNIT/1 SC ×2 (13:29→13:30)
--- NOTE | 2020-01-07 13:46 | NUR ---
MSADMTime: N A 79 year old MALE admitted to 4E under services of SHARMAINE HOOVER DO. Pt. arrived via bed from ER. Chief complaint: DIABETIC FOOT WOUNDS. URIEL BREAUX
--- NOTE | 2020-01-07 15:47 | NUR ---
DR. VEGA'S OFFICE NOTIFIED OF CONSULT.
[2020-01-07 16:00] VITALS: BP 143/53
--- NOTE | 2020-01-07 18:14 | NUR ---
NOTIFIED DR. KRISHNAN'S OFFICE OF CONSULT.
[2020-01-07 20:00] VITALS: BP 134/52
[2020-01-07] MEDS ORDERED: TAMSULOSIN HCL0.4 MG PO (21:57)
--- NOTE | 2020-01-07 22:01 | NUR ---
PT STATES THAT HE DID NOT GET HIS NIGHT TIME MEDICATIONS. LOOKED IN HIS RX MEDS AND THEY WERE REVIEWED BUT NO CONTINUED. WHILE LOOKING OVER THE MED LIST HE GAVE ME, MEDICATIONS ARE NOT COMPLETE IN DOSAGE AND THE PATIENT IS NOT SURE OF WHAT HE TAKES. I TOLD THE PATIENT WE CAN CALL HIS PHARMACY IN THE MORNING, UNLESS HE HAS SOMEONE AT HOME WHO CAN VERIFY A CORRECT MEDICATION LIST. PT STATES HE NEEDS TO TAKE HIS WARFARIN. CALLED DR SHEIKH AND INFORMED HIM OF ALL THIS, HE AGREES TO GET UPDATED MED LIST IN THE MORNING FROM [facility] AND IS FINE WITH CONTINUING HIS WARFARIN NOW
[2020-01-08] VITALS: BP 147/69
--- NOTE | 2020-01-08 02:53 | NUR ---
24 HR chart check completed.
--- NOTE | 2020-01-08 04:19 | NUR ---
PT STATES HE HAS PAIN IN HIS FEET AND RATES IT A 8/10. PRN NORCO PO GIVEN AT THIS TIME, WILL CONTINUE TO MONITOR FOR EFFECTIVENESS
--- NOTE | 2020-01-08 04:53 | NUR ---
PT STATES RELIEF OF PAIN AFTER TAKING PAIN MEDICATION
[2020-01-08 06:12] LABS: BASO % 0.4 % (0.0-1.0); EOS # 0.3 10*3/uL (0.0-0.4); EOS % 3.5 % (1.0-4.0); HEMATOCRIT 36.1 % (42.0-52.0); LYMPH # 2.7 10*3/uL (1.3-4.4); LYMPH % 28.4 % (27.0-41.0); MEAN CELL VOLUME 85.3 fl (80.0-94.0); MEAN CORPUSCULAR HGB 28.1 pg (27.0-31.0); MEAN PLATELET VOLUME 10.2 fl (9.6-12.3); MONO # 0.7 10*3/uL (0.1-1.0); MONO % 7.6 % (3.0-9.0); NEUT # 5.6 10*3/uL (2.3-7.9); NEUT % 59.8 % (47.0-73.0); PLATELET COUNT AUTOMATED 260 10*3/uL (130-400); RED BLOOD COUNT 4.23 10*6/uL (4.50-5.90); RED CELL DISTRI WIDTH 14.8 % (0-14.5); WHITE BLOOD COUNT 9.4 10*3/uL (4.8-10.8)
[2020-01-08 06:21] LABS: ALBUMIN 2.7 gm/dl (3.1-4.5); BUN 23 mg/dl (7-24); CHLORIDE 106 mmol/L (98-107); CHOLESTEROL 125 mg/dL (<200); CREATININE 1.08 mg/dL (0.70-1.30); PHOSPHOROUS 3.3 mg/dL (2.5-4.9); POTASSIUM 3.5 mmol/L (3.5-5.1); SGOT/AST 13 IU/L (3-35); SGPT/ALT 16 U/L (12-78); SODIUM 139 mmol/L (136-145); TOTAL PROTEIN 6.9 gm/dL (6.4-8.2); TRIGLYCERIDES 113 mg/dl (<150); VLDL CHOLESTEROL 23 mg/dL (6-40)
[2020-01-08 06:27] LABS: ALKALINE PHOSPHATASE 71 U/L (45-117); FREE T4 1.07 ng/dl (0.76-1.46); HDL CHOLESTEROL 38 mg/dl (40-60); LDL CHOLESTEROL 64 mg/dL (9-159)
[2020-01-08 06:28] LABS: ACT PARTIAL THROMBO TIME 35.3 SECONDS (20.0-32.1); INTERNATIONAL NORM RATIO 2.1 (2.0-3.5)
[2020-01-08 08:00] VITALS: BP 129/56
--- NOTE | 2020-01-08 09:20 | NUR ---
Project Management Manager in to talk to patient. Patient states lives at HOME with . There are FEW steps in the home. Physician: CECILIA Pharmacy: [facility] Home health services: NONE Patient's level of ADLs: MODERATE ASSIST Patient has working utilities: YES DME: [facility] Follow-up physician's appointment after d/c: WILL BE MADE BY THE HOSPITALIST COORDINATOR Does patient want to access PORTAL?: NO Discharge plan IS TO RETURN HOME AT THIS TIME. PATIENT STATED IF NEEDED HE WOULD LIKE TO BE REFERRED TO [facility] OR HAVE [facility]. PATIENT STATED HE WANTS TO GO HOME. PATIENT DOES NOT DRIVE AT THIS TIME, HIS DAUGHTERS ASSIST HIM WITH THIS NEED. PATIENT WOULD PREFER TO RETURN HOME IF ABLE. WILL CONTINUE TO FOLLOW. SAGRARIO BOOTHE
--- NOTE | 2020-01-08 09:57 | NUR ---
MEDICATED WITH PRN PO NORCO FOR BILARAL FEET PAIN.
[2020-01-08] MEDS ORDERED: NORCO 5-325 TA1 EACH PO (10:40)
[2020-01-08] MEDS ORDERED: PROBIOTIC250 MG PO (10:41)
[2020-01-08] MEDS ORDERED: MAGNESIUM ELEME30 MG PO (10:41)
[2020-01-08] MEDS ORDERED: VITAMIN B125000 MCG PO (10:42)
--- NOTE | 2020-01-08 10:43 | NUR ---
MED REC UPDATED/CORRECTED USING INFORMATION PROVIDED BY MELISSA CERON.
--- NOTE | 2020-01-08 10:56 | NUR ---
PRN PO NORCO EFFECTIVE FOR FEET PAIN, PER PATIENT.
[2020-01-08 12:00] VITALS: BP 101/72
[2020-01-08 16:00] VITALS: BP 142/59
--- NOTE | 2020-01-08 16:33 | NUR ---
MEDICATED WITH PRN PO NORCO FOR BILATERAL FEET PAIN.
--- NOTE | 2020-01-08 19:00 | NUR ---
REPORT RECEIVED. PT LYING IN BED WATCHING TV AT THIS TIME. NO S/S OF DISTRESS NOTED. CALL LIGHT IN REACH
[2020-01-08 20:00] VITALS: BP 121/44
--- NOTE | 2020-01-08 21:23 | NUR ---
CALLED DR. KAMARA REGARDING HR OF 54. ORDERED TO HOLD LOPRESSOR FOR ANGIE.
--- NOTE | 2020-01-08 22:06 | NUR ---
SHANNANCO GIVEN FOR 8/10 FOOT PAIN. SEE MAR
--- NOTE | 2020-01-08 23:30 | NUR ---
PT STATES THAT THE NORCO HELPED HIS FOOT PAIN
[2020-01-09] VITALS: BP 130/45
--- NOTE | 2020-01-09 01:00 | NUR ---
PT SLEEPING AT THIS TIME, CALL LIGHT IN REACH
--- NOTE | 2020-01-09 03:00 | NUR ---
PT APPEARS TO BE SLEEPING, NO S/S OF DISTRESS NOTED. CALL LIGHT IN REACH
[2020-01-09 06:08] LABS: BASO % 0.4 % (0.0-1.0); EOS # 0.5 10*3/uL (0.0-0.4); EOS % 5.7 % (1.0-4.0); HEMATOCRIT 37.1 % (42.0-52.0); LYMPH # 3.2 10*3/uL (1.3-4.4); LYMPH % 34.2 % (27.0-41.0); MEAN CELL VOLUME 84.5 fl (80.0-94.0); MEAN CORPUSCULAR HGB 27.6 pg (27.0-31.0); MEAN CORPUSCULAR HGB CONC 32.6 g/dl (33.0-37.0); MEAN PLATELET VOLUME 10.3 fl (9.6-12.3); MONO # 0.6 10*3/uL (0.1-1.0); MONO % 6.9 % (3.0-9.0); NEUT # 4.9 10*3/uL (2.3-7.9); NEUT % 52.7 % (47.0-73.0); PLATELET COUNT AUTOMATED 269 10*3/uL (130-400); RED BLOOD COUNT 4.39 10*6/uL (4.50-5.90); RED CELL DISTRI WIDTH 14.7 % (0-14.5); WHITE BLOOD COUNT 9.3 10*3/uL (4.8-10.8)
[2020-01-09 06:20] LABS: INTERNATIONAL NORM RATIO 2.1 (2.0-3.5)
[2020-01-09 08:00] VITALS: BP 127/51
--- NOTE | 2020-01-09 10:56 | NUR ---
DR. MACHADO NOTIFIED OF CONSULT, FACE SHEET FAXED TO HIS OFFICE PER HIS REQUEST.
[2020-01-09 12:00] VITALS: BP 133/49; BP 172/94
[2020-01-09 16:00] VITALS: BP 129/53
--- NOTE | 2020-01-09 18:47 | NUR ---
MEDICATED WITH PRN PO NORCO FOR BILATERAL FEET PAIN.
[2020-01-09 20:00] VITALS: BP 114/45; BP 166/68
--- NOTE | 2020-01-09 22:52 | NUR ---
PT MEDICATED WITH NORCO PER ORDER FOR COMPLAINTS OF FEET PAIN.
[2020-01-10] VITALS: BP 147/53
--- NOTE | 2020-01-10 | NUR ---
NORCO APPEARS EFFECTIVE, PT SLEEPING
--- NOTE | 2020-01-10 02:00 | NUR ---
PT SLEEPING AT THIS TIME, CALL LIGHT IN REACH
--- NOTE | 2020-01-10 05:40 | NUR ---
PT REFUSING BATH THIS AM BEFORE SURGERY. PT STATES "I JUST WANT TO GET SOME SLEEP" PT ALSO REFUSING BLOOD SUGAR CHECK. WILL TRY AGAIN LATER.
[2020-01-10 06:17] LABS: BASO # 0.1 10*3/uL (0.0-0.1); BASO % 0.7 % (0.0-1.0); EOS # 0.4 10*3/uL (0.0-0.4); EOS % 4.9 % (1.0-4.0); HEMATOCRIT 36.6 % (42.0-52.0); LYMPH # 3.2 10*3/uL (1.3-4.4); LYMPH % 36.8 % (27.0-41.0); MEAN CELL VOLUME 86.1 fl (80.0-94.0); MEAN CORPUSCULAR HGB 27.8 pg (27.0-31.0); MEAN CORPUSCULAR HGB CONC 32.2 g/dl (33.0-37.0); MEAN PLATELET VOLUME 10.5 fl (9.6-12.3); MONO # 0.6 10*3/uL (0.1-1.0); MONO % 6.9 % (3.0-9.0); NEUT # 4.4 10*3/uL (2.3-7.9); NEUT % 50.5 % (47.0-73.0); PLATELET COUNT AUTOMATED 274 10*3/uL (130-400); RED BLOOD COUNT 4.25 10*6/uL (4.50-5.90); RED CELL DISTRI WIDTH 14.7 % (0-14.5); WHITE BLOOD COUNT 8.6 10*3/uL (4.8-10.8)
[2020-01-10 06:25] LABS: INTERNATIONAL NORM RATIO 2.2 (2.0-3.5)
[2020-01-10 06:42] LABS: BUN 13 mg/dl (7-24); CHLORIDE 109 mmol/L (98-107); CREATININE 1.02 mg/dL (0.70-1.30); POTASSIUM 3.5 mmol/L (3.5-5.1); SODIUM 139 mmol/L (136-145)
--- NOTE | 2020-01-10 07:04 | NUR ---
JAMIA JAMIL [id number] Please refer to the physician's history and physical for past medical history, comorbid conditions, and allergies. Diagnosis: DIABETIC ULCER OF LEFT FOOT CELLULITIS LEFT FOOT Jose D Score: 22,LOW OR NO RISK WOUND DESCRIPTIONS: Wound Number: 1 Location of the wound: Left 2nd toe Thickness: Partial Size: 0.5cm x 1.0cm x 0.1cm Tunneling: none Undermining: none Sinus Tract: none Presence of Exudate: serosanguneious Amount: Moderate Color: Red Odor: None Periwound Skin Appearance: Edema Wound edges: approximated Pain (associated with wound): none at time of assessment How does patient state this happened? pt stated this started about [address] Mullen debrided a bunion and it continues to get worse Wound Number: 2 Location of the wound: Right heel Thickness: Stage 2 Size: 2.0cm x 1.0cm x 0.1cm Tunneling: none Undermining: none Sinus Tract: none Presence of Exudate: Serous Amount: Light Color: Red Odor: None Periwound Skin Appearance: Erythema Wound edges: approximated Pain (associated with wound): none at time of assessment How does patient state this happened? pt stated this started about 1 year ago Surface the patient is resting on: Position Pro SKIN PREVENTION RECOMMENDATION: 1. Pressure redistribution support surface as appropriate 2. Elevate heels 3. Remove boots/TEDS every shift and reapply 4. Head of bed 30 degrees as tolerated 5. Assess nutrition and hydration 6. Manage moisture 7. Avoid the use of containment devices while in bed 8. Use absorptive products on surfaces limit layers of linens on bed 9. Turn and reposition every 1-2 hours in bed and every 1 hour in chair as tolerated 10. Weight shifts every 15 minutes while up in chair 11. Offloading with pillows or device to keep heels elevated off bed 12. Monitor skin at least every shift 13. Inspect under medical devices twice a day WOUND TREATMENT RECOMMENDATIONS: Podiatry, vascular and ID already on consult Clarify wound care order with podiatry. Continue heel raiser pro boots to bilateral feet. Patient states he will continue to follow up with podiatry (Dr. Mullen) when discharged.
[2020-01-10 08:00] VITALS: BP 132/79
--- NOTE | 2020-01-10 08:50 | NUR ---
Occupational therapy orders received and chart reviewed. Per chart review, patient is scheduled for a surgical procedure of the left foot for a toe amputation this date. Will follow up with patient when new orders and weight-bearing restrictions are received post-op. Thank you. Ciarra Mcknight, OTR/L
--- NOTE | 2020-01-10 08:50 | NUR ---
PHYSICAL THERAPY Gely ramos, pt is scheduled for surgical procedure of left foot this AM for toe amputation, will follow post-op for new orders regarding any weightbearing restrictions and medically appropriate, thank you. Ana Quintero PT
--- NOTE | 2020-01-10 10:08 | NUR ---
MORPHINE GIVEN FOR C/O LT FOOT PAIN. RATES 8/10 ON PAIN SCALE. WILL MONITOR.
[2020-01-10 10:37] VITALS: BP 123/52
--- NOTE | 2020-01-10 11:09 | NUR ---
Dr. Araiza notified of wound care recommendations.
--- NOTE | 2020-01-10 11:15 | NUR ---
MORPHINE EFFECTIVE PER PT.
--- NOTE | 2020-01-10 11:31 | NUR ---
SPOKE WITH PT ABOUT SNF STAY IF NEEDED OR IF IV ANTIBIOTICS WERE NEEDED. PT STATES HE WANTS TO GO HOME. STATES I KNOW THEY CAN GIVE IV ANTIBIOTICS AT HOME. STATES HE WOULD BE OK WITH HOME HEALTH IF NEEDED BUT REALLY WANTS TO GO HOME. WILL CONTINUE TO FOLLOW.
--- NOTE | 2020-01-10 13:41 | NUR ---
REFERRAL SENT TO [facility] TO CHECK COST OF MEDICATION FOR PT.
--- NOTE | 2020-01-10 15:12 | NUR ---
PER MARILYNN FROM [facility] PT WOULD HAVE 20$ A DAY COPAY FOR SUPPLIES AND 68.52 A WEEK COST FOR MEDICATION. TOTAL OF $208.52 A WEEK.
[2020-01-10 16:00] VITALS: BP 130/66
[2020-01-10 20:00] VITALS: BP 135/51
--- NOTE | 2020-01-10 21:00 | NUR ---
SITTING AT BEDSIDE. RESPIRATIONS EASY. LUNGS DIMINISHED, CLEAR. PULSE OX 96% RA. ABD SOFT WITH NORMO BOWEL SOUNDS, C/O DIARRHEA. BLE/PEDAL EDEMA NOTED WITH DRESSINGS INTACT TO BILATERAL FEET. TUBI-SCIENCE JOB TITLES AND WALKING SHOES ALSO IN PLACE. CALL LIGHT WITHIN REACH. NO VOICED COMPLAINTS
--- NOTE | 2020-01-10 21:09 | NUR ---
24 HR chart check completed.
--- NOTE | 2020-01-10 22:11 | NUR ---
REQUESTED AND RECEIVED NORCO PER PRN ORDER FOR COMPLAINTS OF BLE PAIN RATING A 9. CALL LIGHT WITHIN REACH. WILL MONITOR FOR EFFECTIVENESS
[2020-01-11] VITALS: BP 123/43
--- NOTE | 2020-01-11 | NUR ---
REMAINS AWAKE, SITTING AT BEDSIDE. RESPIRATIONS EASY. VSS. STATES EARLIER PAIN MEDS "HELPING." CALL LIGHT WITHIN REACH. NO FURTHER VOICED COMPLAINTS
--- NOTE | 2020-01-11 01:54 | NUR ---
CALLED TO ROOM BY PATIENT WHO HAS DRESSING REMOVED FROM LEFT FOOT. DRESSING CHANGE COMPLETED. ALSO REQUESTED AND RECEIVED NORCO PER PRN ORDER FOR COMPLAINTS OF BLE PAIN RATING A 6. CALL LIGHT WITHIN REACH. WILL MONITOR
[2020-01-11] MEDS ORDERED: FUROSEMIDE20 M1 PO (02:47)
[2020-01-11] MEDS ORDERED: DILTIAZEM HCL120 M2 PO (02:49)
--- NOTE | 2020-01-11 03:00 | NUR ---
MEDS APPEAR EFFECTIVE. SLEEPING. RESPIRATIONS EASY. CALL LIGHT WITHIN REACH
[2020-01-11 04:00] VITALS: BP 150/68
--- NOTE | 2020-01-11 04:10 | NUR ---
MEDCIATED WITH MORPHINE PER PRN ORDER FOR COMPLAINTS OF CONTINUED PAIN TO BLE RATING A 5. WILL MONITOR FOR EFFECTIVENESS
--- NOTE | 2020-01-11 04:50 | NUR ---
SITTING AT BEDSIDE, STATES RELIEF FROM EARLIER MEDS. CALL LIGHT WITHIN REACH. NO FURTHER VOICED COMPLAINTS
--- NOTE | 2020-01-11 06:00 | NUR ---
SLEEPING. STATES RELIEF FROM EARLIER MEDS. CALL LIGHT WITHIN REACH. NO FURTHER VOICED COMPLAINTS
[2020-01-11 06:08] LABS: BUN 14 mg/dl (7-24); CHLORIDE 110 mmol/L (98-107); POTASSIUM 3.5 mmol/L (3.5-5.1); SODIUM 140 mmol/L (136-145)
[2020-01-11 06:12] LABS: BASO % 0.4 % (0.0-1.0); EOS # 0.3 10*3/uL (0.0-0.4); EOS % 3.1 % (1.0-4.0); HEMATOCRIT 37.7 % (42.0-52.0); LYMPH # 2.8 10*3/uL (1.3-4.4); LYMPH % 29.1 % (27.0-41.0); MEAN CELL VOLUME 84.7 fl (80.0-94.0); MEAN CORPUSCULAR HGB 27.2 pg (27.0-31.0); MEAN CORPUSCULAR HGB CONC 32.1 g/dl (33.0-37.0); MEAN PLATELET VOLUME 10.2 fl (9.6-12.3); MONO # 0.7 10*3/uL (0.1-1.0); MONO % 6.8 % (3.0-9.0); NEUT # 5.9 10*3/uL (2.3-7.9); NEUT % 60.5 % (47.0-73.0); PLATELET COUNT AUTOMATED 275 10*3/uL (130-400); RED BLOOD COUNT 4.45 10*6/uL (4.50-5.90); RED CELL DISTRI WIDTH 14.6 % (0-14.5); WHITE BLOOD COUNT 9.7 10*3/uL (4.8-10.8)
[2020-01-11 06:21] LABS: INTERNATIONAL NORM RATIO 1.9 (2.0-3.5)
[2020-01-11 08:00] VITALS: BP 159/59
--- NOTE | 2020-01-11 08:09 | NUR ---
Spoke with Dr. Robledo regarding wound care recommendations and he stated to go ahead and change it he thought he had to have information in all chakraborty to submit education provided on how to bypass the screens.
--- NOTE | 2020-01-11 08:52 | NUR ---
OLIVE PACKER IN TO TALK TO PT ABOUT COPAY FOR IV ANTIBIOTICS. PT STATES HE CAN NOT PAY 208.52 A WEEK FOR MEDS AND SUPPLIES. STATES HE CHANGED INSURANCES LAST YEAR BECAUSE HIS AGENT TOLD HIM IT WOULD PAY FOR EVERYTHING HIS MEDICARE DID NOT. STATES HE IS GOING TO CALL HIS AGENT AND TALK TO THEM ALSO. TALKED WITH HIM ABOUT GOING TO A SNF BUT HE REFUSES. STATES HE WANTS TO GO HOME. WILL CONTINUE TO FOLLOW.
--- NOTE | 2020-01-11 09:30 | NUR ---
Occupational therapy orders received and chart reviewed. Patient supine in bed upon arrival and decling an OT evaluation at this time. Patient reported that he has been independently completing dressing and toileting, transfers, and mobility with the WW. Patient reported no LOBs or difficulty transferring from the toilet, a lower surface. Patient is using a WW in the hospital, but used a SC at home and was I with ADLs prior to admission. Patient's nurse aware of patient's refusal. Will check back with patient tomorrow to check functional status prior to d/c OT order. Thank you. Ciarra Mcknight, OTR/L
--- NOTE | 2020-01-11 09:38 | NUR ---
PHYSICAL THERAPY Eval received chart reviewed attempted to see pt at the bedside, introduced and educated pt on PT services, however pt declining any therapy at this time. Pt states he has been getting up "on my own using the wheeled walker and doing fine". Pt states he has both a cane and FWW at home lives with his and has no concerns with mobility at this time, stating he has been "steady on my feet" no balance issues. Spoke w nsg reg above will defer PT eval at this time as per pt stating he does not want therapy and has no concerns. Will check back with pt periodically to ensure status has not changed and no new issues. Ana Quintero PT T
--- NOTE | 2020-01-11 11:09 | NUR ---
TALKED WITH PT ABOUT POSSIBLY COMING INTO HOSPITAL 2 TIMES A DAY FOR ANTIBIOTICS. PT IS IN AGREEMENT AND STATES HE HAS DONE IT BEFORE.
[2020-01-11 12:00] VITALS: BP 141/59
--- NOTE | 2020-01-11 13:20 | NUR ---
NORCO GIVEN FOR C/O GENERALIZED DISCOMFORT, WILL MONITOR.
--- NOTE | 2020-01-11 14:25 | NUR ---
ARTURO EFFECTIVE PER PT.
[2020-01-11 16:00] VITALS: BP 179/67
[2020-01-11 20:00] VITALS: BP 141/74
--- NOTE | 2020-01-11 20:25 | NUR ---
24 HR chart check completed.
--- NOTE | 2020-01-11 21:00 | NUR ---
RESTING IN BED WITH NO ACUTE DISTRESS NOTED. RESPIRATIONS EASY. LUNGS DIMINISHED, CLEAR. PULSE OX 98% RA. ABD SOFTLY OBESE WITH NORMO BS, CONTINUES TO C/O DIARRHEA - HAT PLACED IN TOILET FOR SAMPLE. TRACE BLE EDEMA WITH TUBI-SHREDDING MACHINE TENDER IN PLACE. DRESSING DRY AND INTACT TO LEFT FOOT. PICC LINE PATENT AND INTACT RIGHT ARM. CALL LIGHT WITHIN REACH. NO VOICED COMPLAINTS
--- NOTE | 2020-01-11 21:35 | NUR ---
MEDICATED WITH NORCO PER PRN ORDER FOR COMPLAINTS OF BLE PAIN RATING A 10. CALL LIGHT WITHIN REACH. WILL MONITOR FOR EFFECTIVENESS
--- NOTE | 2020-01-11 23:00 | NUR ---
MEDS APPEAR EFFECTIVE. RESTING IN BED WITH EYES CLOSED. RESPIRATIONS EASY. CALL LIGHT WITHIN REACH
[2020-01-12] VITALS: BP 130/48
--- NOTE | 2020-01-12 | NUR ---
CONTINUES TO REST WITH EYES CLOSED. RESPIRATIONS EASY. VSS. CALL LIGHT WITHIN REACH
--- NOTE | 2020-01-12 03:23 | NUR ---
AWAKENS, C/O PAIN TO BLE RATING A 5 - MEDICATED WITH NORCO PER PRN ORDER. WILL MONITOR FOR EFFECTIVENESS
--- NOTE | 2020-01-12 04:00 | NUR ---
MEDS EFFECTIVE. SLEEPING
[2020-01-12 05:56] LABS: BASO % 0.4 % (0.0-1.0); EOS # 0.3 10*3/uL (0.0-0.4); EOS % 3.1 % (1.0-4.0); HEMATOCRIT 36.5 % (42.0-52.0); LYMPH # 2.8 10*3/uL (1.3-4.4); LYMPH % 29.1 % (27.0-41.0); MEAN CELL VOLUME 83.9 fl (80.0-94.0); MEAN CORPUSCULAR HGB 27.4 pg (27.0-31.0); MEAN CORPUSCULAR HGB CONC 32.6 g/dl (33.0-37.0); MEAN PLATELET VOLUME 10.1 fl (9.6-12.3); MONO # 0.6 10*3/uL (0.1-1.0); MONO % 6.3 % (3.0-9.0); NEUT # 5.8 10*3/uL (2.3-7.9); NEUT % 60.9 % (47.0-73.0); PLATELET COUNT AUTOMATED 280 10*3/uL (130-400); RED BLOOD COUNT 4.35 10*6/uL (4.50-5.90); RED CELL DISTRI WIDTH 14.4 % (0-14.5); WHITE BLOOD COUNT 9.5 10*3/uL (4.8-10.8)
--- NOTE | 2020-01-12 06:00 | NUR ---
CONTINUES TO REST WITH NO DISTRESS NOTED. RESPIRATIONS EASY. CALL LIGHT WITHIN REACH. NO VOICED COMPLAINTS
[2020-01-12 06:21] LABS: BUN 12 mg/dl (7-24); CHLORIDE 110 mmol/L (98-107); POTASSIUM 3.3 mmol/L (3.5-5.1); SODIUM 141 mmol/L (136-145)
[2020-01-12 06:23] LABS: CREATININE 0.97 mg/dL (0.70-1.30)
[2020-01-12 08:00] VITALS: BP 116/55
[2020-01-12 12:00] VITALS: BP 139/65
--- NOTE | 2020-01-12 12:57 | NUR ---
Chro spoke to patient via phone regarding discharge planning. Discussed short term SNF and he refuses stating not with everything that is going on. Discussed home health care services and he states he is not able to afford the $200 a week. He remains agreeable to come into the hospital twice a day. He states he doesn't drive but his daughter will bring him. Prescription for IV Cefepime 2 GM IV q12h x 40 days sent to central scheduling and pharmacy. Spoke to Luis in pharmacy regarding availability of Cefepime. Pharmacist states we have in stock. Spoke to Jesusita at [facility].
--- NOTE | 2020-01-12 13:25 | NUR ---
Central Scheduling called patient is set up for 8am and 8pm. Patient and nurse notified. Patient very unhappy that his insurance is not covering the IV antibiotics at home. He states this is going to be a hardship on his daughter having to bring him back and forth as he doesn't drive. Discussed SNF and he continues to refuse. Prescription given to patient and a copy given to food service steward who placed in outpatient. Informed patient he is to be at the hospital at 8am and 8pm, that he is to come through the ER and will have his temperature checked, he has to wear a mask, during the week he will go to surgery on 3 and on the weekends he will come to the 4th floor. He verbalized an understanding as he states he has come to the hospital for IV antibiotics before.
--- NOTE | 2020-01-12 13:40 | NUR ---
Spoke to Delaney at [facility] to inform of patient has decided to come into the hospital for his IV antibiotics. She will let Jesusita know as she has been working on the patient.
[2020-01-12] MEDS ORDERED: CEFEPIME HYDROCH2 GM IJ (13:56)
--- NOTE | 2020-01-12 13:59 | NUR ---
Called to patient's room. Patient now wants to have the IV antibiotics at home. He is agreeable to pay the $200 weekly cost. Discussed home health care services and he is agreeable. When provided with a list of agencies he chose [facility]. Notified nurse, hospitalist nurse director, and Dr. Pate. Explained he will need his last dose of IV antibiotic today prior to discharge and start of care would be tomorrow. Spoke to Jesusita at [facility] who was going to reach out to the patient for payment plan.
--- NOTE | 2020-01-12 14:14 | NUR ---
Faxed home health order to [facility] an PICC line information and labs to Jesusita at [facility]. Spoke to Dr. Pate and Prashant in the pharmacy regarding when next dose of cefepime can be given. Pharmacist stated 6pm as there are some conditions that it can be given every 8 hours and patient doesn't have any renal insufficiency. Nurse notified.
[2020-01-12 16:00] VITALS: BP 156/64
--- NOTE | 2020-01-12 18:26 | NUR ---
Discharge instructions reviewed with patient/family. Patient receptive and verbalizes understanding. Follow-up care arranged. Written instructions given to patient/family. PRISCA FARFAN
== END 2020-01-12 18:31 | disposition home or self-care (01) | DRG 548 ==
LOC: ED 11:39 → EDHOLD 12:28 → 4E 12:28
PROVIDERS: Emergency Medicine; Family Medicine; Hospitalist; Internal Medicine; ADMIT Internal Medicine
PROC: 02HV33Z Insertion of Infusion Device into Superior Vena Cava, Percutaneous Approach (ICD-10-PCS; principal; 2020-01-11)
DX: M00.9 Pyogenic arthritis, unspecified (principal); E43 Unspecified severe protein-calorie malnutrition; M86.172 Other acute osteomyelitis, left ankle and foot; L03.116 Cellulitis of left lower limb; E87.1 Hypo-osmolality and hyponatremia; I25.810 Atherosclerosis of coronary artery bypass graft(s) without angina pectoris; L97.419 Non-pressure chronic ulcer of right heel and midfoot with unspecified severity; E11.69 Type 2 diabetes mellitus with other specified complication; E11.621 Type 2 diabetes mellitus with foot ulcer; L97.529 Non-pressure chronic ulcer of other part of left foot with unspecified severity; I12.9 Hypertensive chronic kidney disease with stage 1 through stage 4 chronic kidney disease, or unspecified chronic kidney disease; E11.22 Type 2 diabetes mellitus with diabetic chronic kidney disease; N18.3 Chronic kidney disease, stage 3 (moderate); D64.9 Anemia, unspecified; E11.65 Type 2 diabetes mellitus with hyperglycemia; E11.42 Type 2 diabetes mellitus with diabetic polyneuropathy; N40.0 Benign prostatic hyperplasia without lower urinary tract symptoms; F32.9 Major depressive disorder, single episode, unspecified; F41.9 Anxiety disorder, unspecified; E03.9 Hypothyroidism, unspecified; E78.2 Mixed hyperlipidemia; E11.51 Type 2 diabetes mellitus with diabetic peripheral angiopathy without gangrene; I48.0 Paroxysmal atrial fibrillation; Z96.642 Presence of left artificial hip joint; Z79.4 Long term (current) use of insulin; Z95.1 Presence of aortocoronary bypass graft; Z68.26 Body mass index [BMI] 26.0-26.9, adult; Z79.899 Other long term (current) drug therapy; Z90.49 Acquired absence of other specified parts of digestive tract; Z82.49 Family history of ischemic heart disease and other diseases of the circulatory system; Z79.01 Long term (current) use of anticoagulants

== ENCOUNTER → 2020-09-19 | Outpatient (CLI) | payer MEDICARE, OTHER ==
[~2020-09-19] MED LIST changes: +CEFEPIME HYDROCH2 GM IJ; +DILTIAZEM HCL120 M2 PO; +FUROSEMIDE20 M1 PO; +MAGNESIUM ELEME30 MG PO; +PROBIOTIC250 MG PO; +TAMSULOSIN HCL0.4 MG PO; +VITAMIN B125000 MCG PO
== END | disposition home or self-care (01) ==
LOC: COVID19 15:08
PROVIDERS: ATTEND Family Medicine
DX: Z20.822 Contact with and (suspected) exposure to COVID-19 (principal)